=== PATIENT | female | born 1980 | race Caucasian/White ===

== ENCOUNTER → 2018-02-22 16:30 | Outpatient (CLI) | payer OTHER, SELFPAY ==
[2018-02-25 12:18] LABS: HPV Reflexed? NOT INDICATED
== END ==
PROVIDERS: Visit Provider Obstetrics & Gynecology
DX: Z12.4 Encounter for screening for malignant neoplasm of cervix (principal)
CPT/HCPCS: 88175; G0145

== ENCOUNTER → 2018-04-14 11:13 | Outpatient (CLI) | payer OTHER, SELFPAY ==
--- NOTE | 2018-04-14 11:16 | BI_ITS ---
MAMMOGRAPHY - BILATERAL SCREENING REASON FOR EXAM: Female, 37 years old. Routine annual screening examination. PERTINENT HISTORY: Grandmother with breast cancer. Aunt with breast cancer. TECHNIQUE: Digital bilateral breast hai (3D mammographic acquisition) in the CC and MLO projections. 2-D mediolateral oblique (MLO) and craniocaudad (CC) views of both breasts were obtained. CAD: Full Field Digital Mammography with Computer Added Detection was performed. COMPARISON: None. Baseline examination. FINDINGS: Breast Composition: The breasts are extremely dense, which lowers the sensitivity of mammography. There are no dominant masses or suspicious calcifications. No other significant abnormalities are identified. BI/SCREENING MAMM (CAD), BILAT IMPRESSION: Negative screening mammogram. Yearly followup mammogram recommended. (A) ASSESSMENT CATEGORY: BIRADS Category 1: Negative. A letter regarding these results will be sent to the patient by the facility within 30 days. Approximately 10% of breast cancers are not detected by mammography. A normal mammogram should not delay biopsy of a clinically suspicious abnormality. [id number] Electronically Signed: Romel Cat MD at 13:03 EDT Tel [phone], Service support ,
== END ==
PROVIDERS: Visit Provider Obstetrics & Gynecology
DX: Z12.31 Encounter for screening mammogram for malignant neoplasm of breast (principal)
CPT/HCPCS: 77063; 77067

== ENCOUNTER → 2019-05-18 | Outpatient (CLI) | payer OTHER, SELFPAY ==
--- NOTE | 2019-05-18 16:05 | BI_ITS ---
MAMMOGRAPHY - BILATERAL SCREENING REASON FOR EXAM: Female, 38 years old. Routine annual screening examination. PERTINENT HISTORY: Grandmother with breast cancer. Aunt with breast cancer. TECHNIQUE: Digital bilateral breast param (3D mammographic acquisition) in the CC and MLO projections. 2-D mediolateral oblique (MLO) and craniocaudad (CC) views of both breasts were obtained. CAD: Full Field Digital Mammography with Computer Added Detection was performed. COMPARISON: Comparison is made with prior study dated April 14, 2018. FINDINGS: Breast Composition: The breasts are extremely dense, which lowers the sensitivity of mammography. There are no dominant masses or suspicious calcifications. No other significant abnormalities are identified. There has been no significant change since the prior study. BI/SCREEN MAMM (CAD) W/PARAM BILAT IMPRESSION: Stable bilateral screening mammogram. Yearly follow-up mammogram recommended. (A) ASSESSMENT CATEGORY: BIRADS Category 1: Negative. A letter regarding these results will be sent to the patient by the facility within 30 days. Approximately 10% of breast cancers are not detected by mammography. A normal mammogram should not delay biopsy of a clinically suspicious abnormality. [id number] Electronically Signed: Romel Cat, at 9:17 EDT , Service support ,
== END | disposition home or self-care (01) ==
PROVIDERS: Referring Provider Obstetrics & Gynecology; Visit Provider Obstetrics & Gynecology
DX: Z12.31 Encounter for screening mammogram for malignant neoplasm of breast (principal)
CPT/HCPCS: 77063; 77067

== ENCOUNTER → 2020-04-03 | Outpatient (CLI) | payer OTHER, SELFPAY ==
[2018-08-18 16:16] VITALS: BMI 20.7
[2020-04-10 16:30] LABS: HPV APTIMA, High Risk Negative (Negative)
[2020-04-10 16:31] LABS: HPV Reflexed? YES, CHARGE PATIENT
== END | disposition home or self-care (01) ==
PROVIDERS: Referring Provider Obstetrics & Gynecology; Visit Provider Obstetrics & Gynecology
DX: Z12.4 Encounter for screening for malignant neoplasm of cervix (principal)
CPT/HCPCS: 87624; 88175; G0145

== ENCOUNTER → 2020-05-20 10:25 | Outpatient (CLI) | payer OTHER, SELFPAY ==
--- NOTE | 2020-05-20 10:28 | BI_ITS ---
MAMMOGRAPHY - BILATERAL SCREENING REASON FOR EXAM: Female, 39 years old. Routine annual screening examination. PERTINENT HISTORY: Grandmother with breast cancer. Aunt with breast cancer. TECHNIQUE: Digital bilateral breast param (3D mammographic acquisition) in the CC and MLO projections. 2-D mediolateral oblique (MLO) and craniocaudad (CC) views of both breasts were obtained. CAD: Full Field Digital Mammography with Computer Added Detection was performed. COMPARISON: Comparison is made with prior study dated 05/18/2019 and 04/14/2018. FINDINGS: Breast Composition: The breasts are extremely dense, which lowers the sensitivity of mammography. There are no dominant masses or suspicious calcifications. No other significant abnormalities are identified. There has been no significant change since the prior study. BI/SCREEN MAMM (CAD) W/PARAM BILAT IMPRESSION: Stable bilateral screening mammogram. Yearly follow-up mammogram recommended. (A) ASSESSMENT CATEGORY: BIRADS Category 1: Negative. A letter regarding these results will be sent to the patient by the facility within 30 days. Approximately 10% of breast cancers are not detected by mammography. A normal mammogram should not delay biopsy of a clinically suspicious abnormality. [id number] Electronically Signed: Romel Cat, at 12:10 EDT , Service support ,
== END ==
PROVIDERS: Referring Provider Obstetrics & Gynecology; Visit Provider Obstetrics & Gynecology
DX: Z12.31 Encounter for screening mammogram for malignant neoplasm of breast (principal)
CPT/HCPCS: 77063; 77067

== ENCOUNTER → 2021-05-13 | Outpatient (CLI) | payer OTHER, SELFPAY ==
[2018-08-18 16:16] VITALS: BMI 20.7
[2021-05-15 13:01] LABS: HPV Reflexed? NOT INDICATED
== END | disposition home or self-care (01) ==
LOC: LABSPEC 10:47
PROVIDERS: Visit Provider Obstetrics & Gynecology
DX: Z12.4 Encounter for screening for malignant neoplasm of cervix (principal)
CPT/HCPCS: 88175; G0145

== ENCOUNTER → 2021-05-26 11:11 | Outpatient (CLI) | payer OTHER, SELFPAY ==
--- NOTE | 2021-05-26 11:13 | BI_ITS ---
MAMMOGRAPHY - BILATERAL SCREENING REASON FOR EXAM: Female, 40 years old. Routine annual screening examination. PERTINENT HISTORY: Grandmother with breast cancer. Aunt with breast cancer. Occasional left retroareolar tenderness. TECHNIQUE: Digital bilateral breast param (3D mammographic acquisition) in the CC and MLO projections. 2-D mediolateral oblique (MLO) and craniocaudad (CC) views of both breasts were obtained. CAD: Full Field Digital Mammography with Computer Added Detection was performed. COMPARISON: Comparison is made with prior study 05/20/2020 and 05/18/2019. FINDINGS: Breast Composition: The breasts are extremely dense, which lowers the sensitivity of mammography. There are no dominant masses or suspicious calcifications. No other significant abnormalities are identified. There has been no significant change since the prior study. BI/SCRN MAMM (CAD)W/PARAM BILAT IMPRESSION: Stable bilateral screening mammogram. Yearly follow-up mammogram recommended. (A) ASSESSMENT CATEGORY: BIRADS Category 1: Negative. A letter regarding these results will be sent to the patient by the facility within 30 days. Approximately 10% of breast cancers are not detected by mammography. A normal mammogram should not delay biopsy of a clinically suspicious abnormality. [id number] Electronically Signed: Romel Cat MD at 12:46 EDT , Service support ,
== END ==
PROVIDERS: Referring Provider Obstetrics & Gynecology; Visit Provider Obstetrics & Gynecology
DX: Z12.31 Encounter for screening mammogram for malignant neoplasm of breast (principal)
CPT/HCPCS: 77063; 77067

== ENCOUNTER → 2022-06-01 | Outpatient (CLI) | payer OTHER, SELFPAY ==
--- NOTE | 2022-06-01 11:00 | BI_ITS ---
MAMMOGRAPHY - BILATERAL SCREENING REASON FOR EXAM: Female, 41 years old. Routine annual screening examination. PERTINENT HISTORY: Grandmother with breast cancer. Aunt with breast cancer. TECHNIQUE: Digital bilateral breast param (3D mammographic acquisition) in the CC and MLO projections. 2-D mediolateral oblique (MLO) and craniocaudad (CC) views of both breasts were obtained. CAD: Full Field Digital Mammography with Computer Added Detection was performed. COMPARISON: Comparison is made with prior study dated 05/26/2021 and 05/20/2020. FINDINGS: Breast Composition: The breasts are extremely dense, which lowers the sensitivity of mammography. There are no dominant masses or suspicious calcifications. No other significant abnormalities are identified. There has been no significant change since the prior study. BI/SCRN MAMM (CAD)W/PARAM BILAT IMPRESSION: Stable bilateral screening mammogram. Yearly follow-up mammogram recommended. (A) ASSESSMENT CATEGORY: BIRADS Category 1: Negative. A letter regarding these results will be sent to the patient by the facility within 30 days. Approximately 10% of breast cancers are not detected by mammography. A normal mammogram should not delay biopsy of a clinically suspicious abnormality. [id number] Electronically Signed: Romel Cat MD at 12:46 EDT ,
== END | disposition home or self-care (01) ==
LOC: OPBI 11:00
PROVIDERS: Visit Provider Obstetrics & Gynecology
DX: Z12.31 Encounter for screening mammogram for malignant neoplasm of breast (principal)
CPT/HCPCS: 77063; 77067

== ENCOUNTER → 2022-10-20 | Outpatient (CLI) | payer OTHER, SELFPAY ==
[2022-10-20 12:37] LABS: Absolute Neutrophil Count 2.5 X10^3/uL (2.0-7.7); Basophil# 0.06 X10^3/uL; Basophil% 1.3 % (0-1); Eosinophil# 0.19 X10^3/uL; Eosinophils% 4.2 % (0-5); Hematocrit 41.8 % (37-47); Hemoglobin 14.6 g/dL (12.0-15.0); Lymphocyte % 33.2 % (19-41); Mean Corp Hgb Conc 34.9 g/dL (32-36); Mean Corpuscular Hgb 32.2 pg (27.0-32.0); Mean Corpuscular Volume 92.3 fL (81-99); Mean Platelet Vol. 9.8 fl (6.2-12.0); Monocyte# 0.27 X10^3/uL; NRBC Flagged by Analyzer 0 % (0-5); Neutrophil # 2.49 X10^3/uL (2.7-7.7); Neutrophil % 55.1 % (47-70); Platelet Count 238 K/mm3 (150-450); RBC Distribution Width CV 11.6 % (11.6-14.6); RBC Distribution Width SD 39.3 fl (35.1-43.9); Red Blood Count 4.53 M/mm3 (4.2-5.4); White Blood Count 4.5 K/mm3 (4.4-11.0)
[2022-10-20 12:59] LABS: ALB/GLOB Ratio 1.2 RATIO (0.9-2.4); AST(SGOT) 11 U/L (15-37); Alanine Aminotransfer ALT/SGPT 20 U/L (13-56); Albumin, Serum 4.3 g/dL (3.2-5.0); Alkaline Phosphatase 53 U/L (45-117); Anion Gap 5 (5-15); BUN 12 mg/dL (7-18); BUN/Creat Ratio 18.8 RATIO (10-20); Calcium,Total 9.3 mg/dL (8.5-10.1); Chloride 109 mmol/L (98-107); Creatinine, Serum 0.64 mg/dL (0.55-1.02); EST Glomerular Filtration Rate 109 mL/min (>60); Est Glom Filt Rate - Afr Amer 132 mL/min (>60); Globulin 3.5 g/dL (2.2-4.2); Glucose 102 mg/dL (74-106); Potassium 3.8 mmol/L (3.5-5.1); Protein, Total 7.8 g/dL (6.4-8.2); Sodium Level 139 mmol/L (136-145)
[2022-10-20 13:11] LABS: Cholesterol 189 mg/dL (200); High Density Lipoprotein 76 mg/dL; Thyroid Stim Hormone (TSH) 1.35 uIU/mL (0.358-3.74); Triglycerides 84 mg/dL; Very Low Density Lipoprotein 17 mg/dL (5-40)
== END | disposition home or self-care (01) ==
LOC: BIMLAB 10:21
PROVIDERS: Obstetrics & Gynecology; PCP Internal Medicine; Referring Provider Internal Medicine; Visit Provider Internal Medicine
DX: I10 Essential (primary) hypertension (principal); Z13.1 Encounter for screening for diabetes mellitus; Z13.220 Encounter for screening for lipoid disorders; Z13.29 Encounter for screening for other suspected endocrine disorder
CPT/HCPCS: 36415; 80053; 80061; 84443; 85025

== ENCOUNTER → 2023-03-15 | Outpatient (CLI) | payer OTHER, SELFPAY ==
[2023-03-15 12:33] LABS: Anion Gap 1 (5-15); BUN 12 mg/dL (7-18); BUN/Creat Ratio 20.6 RATIO (10-20); Calcium,Total 9.1 mg/dL (8.5-10.1); Chloride 108 mmol/L (98-107); Creatinine, Serum 0.58 mg/dL (0.55-1.02); EST Glomerular Filtration Rate 121 mL/min (>60); Est Glom Filt Rate - Afr Amer 147 mL/min (>60); Glucose 99 mg/dL (74-106); Potassium 3.8 mmol/L (3.5-5.1); Sodium Level 136 mmol/L (136-145)
== END | disposition home or self-care (01) ==
LOC: BIMLAB 11:13
PROVIDERS: PCP Internal Medicine; Visit Provider Internal Medicine
DX: I10 Essential (primary) hypertension (principal)
CPT/HCPCS: 36415; 80048

== ENCOUNTER → 2023-09-03 | Outpatient (CLI) | payer OTHER, SELFPAY ==
--- NOTE | 2023-09-03 11:05 | BI_ITS ---
MAMMOGRAPHY - BILATERAL SCREENING REASON FOR EXAM: Female, 43 years old. Routine annual screening examination. PERTINENT HISTORY: Grandmother with breast cancer. Aunt with breast cancer. TECHNIQUE: Digital bilateral breast param (3D mammographic acquisition) in the CC and MLO projections. 2-D mediolateral oblique (MLO) and craniocaudad (CC) views of both breasts were obtained. CAD: Full Field Digital Mammography with Computer Added Detection was performed. COMPARISON: Comparison is made with prior study dated June 01, 2022 and May 26, 2021. FINDINGS: Breast Composition: The breasts are extremely dense, which lowers the sensitivity of mammography. There are no dominant masses or suspicious calcifications. No other significant abnormalities are identified. There has been no significant change since the prior study. BI/SCRN MAMM (CAD)W/PARAM BILAT IMPRESSION: Stable bilateral screening mammogram. Yearly follow-up mammogram recommended. (A) ASSESSMENT CATEGORY: BIRADS Category 1: Negative. A letter regarding these results will be sent to the patient by the facility within 30 days. Approximately 10% of breast cancers are not detected by mammography. A normal mammogram should not delay biopsy of a clinically suspicious abnormality. [id number] Electronically Signed: Romel Cat MD at 9:42 EST ,
== END | disposition home or self-care (01) ==
PROVIDERS: PCP Internal Medicine; Referring Provider Obstetrics & Gynecology; Visit Provider Obstetrics & Gynecology
DX: Z12.31 Encounter for screening mammogram for malignant neoplasm of breast (principal); Z80.3 Family history of malignant neoplasm of breast
CPT/HCPCS: 77063; 77067

== ENCOUNTER → 2024-02-15 | Outpatient (CLI) | payer OTHER, SELFPAY ==
[2024-02-23 03:07] LABS: HPV APTIMA, High Risk Negative (Negative)
== END | disposition home or self-care (01) ==
LOC: LABSPEC 14:22
PROVIDERS: PCP Internal Medicine; Referring Provider Obstetrics & Gynecology; Visit Provider Obstetrics & Gynecology
DX: Z12.4 Encounter for screening for malignant neoplasm of cervix (principal)
CPT/HCPCS: 88175; G0145

== ENCOUNTER → 2024-03-14 | Outpatient (CLI) | payer OTHER, SELFPAY ==
--- NOTE | 2024-03-14 13:21 | US_ITS ---
INDICATION: abnormal uterine bleeding EXAMINATION: Ultrasound US Pelvis Non OB Complete With Transvaginal Imaging TECHNIQUE: Transabdominal and transvaginal pelvic ultrasound was performed. Grayscale, spectral waveform, and color flow Doppler evaluation of the adnexa. COMPARISON: None. FINDINGS: UTERUS: Anteverted. The uterus measures 8.6 x 6.1 x 5.0 cm. There is no uterine mass. The endometrial stripe measures 7.8 in AP diameter which is within normal limits. Nabothian cysts are present within the cervix. RIGHT OVARY: 3.6 x 2.3 x 1.5 cm. Non-enlarged, normal echogenicity. There is normal arterial inflow and venous outflow present in the right ovary. LEFT OVARY: 2.2 x 2.2 x 1.4 cm. Non-enlarged, normal echogenicity. There is normal arterial inflow and venous outflow present in the left ovary. FREE FLUID: None. US/Pelvic w/ Transvaginal IMPRESSION: 1. Normal sonographic appearance of uterus and endometrium, endometrium measures 7.8 mm. No endometrial masses or abnormal fluid collections or blood flow. 2. Nabothian cysts are present in the cervix. 3. Normal sonographic appearance both ovaries without solid or cystic masses or abnormal blood flow. 4. No evidence of torsion. 5. No free fluid. Electronically Signed: Esvin Dewey MD at 23:01 EDT ,
== END | disposition home or self-care (01) ==
PROVIDERS: PCP Internal Medicine; Referring Provider Obstetrics & Gynecology; Visit Provider Obstetrics & Gynecology
DX: N93.9 Abnormal uterine and vaginal bleeding, unspecified (principal); N94.6 Dysmenorrhea, unspecified
CPT/HCPCS: 76830; 76856

== ENCOUNTER → 2024-04-06 | Outpatient (CLI) | payer OTHER, SELFPAY ==
--- NOTE | 2024-04-06 08:45 | EMB_PTH ---
PATIENT: KATY GAMBLE LOC: [facility] U#:[id number] AGE/SX: 43/F ROOM: RE04/06/[address]: Dr. Viv Rod DO : 1980 BED: DIS: 04/06/2024 SPEC #: [id number] RECD: 04/06/24 11:58 STATUS: FELIPE LENZ #: [id number] DAKOTAH: 04/06/24 08:[address]: Viv Rod DEPT: SURGICAL PATHOLOGY RECD BY: Gris May ENTERED: 04/06/24 13:33 SP TYPE: ENDOM BX/C CYRUS DR: Dr. France Howard MD Tissues: Endometrium, NOS Procedures: Surgery Specimen Level IV HEADER OPERATION: Endometrial biopsy PRE-OP DIAGNOSIS: Abnormal uterine bleeding TISSUE SUBMITTED: Endometrial lining MICROSCOPIC DIAGNOSIS Endometrial biopsy: Proliferative endometrium. Fragments of benign ectocervical and endocervical mucosa. SJ/mr 04/07/2024 MICROSCOPIC DESCRIPTION Slides are reviewed. GROSS DESCRIPTION Received is one container labeled with the patient's name and not further designated. The specimen consists of multiple irregular fragments of pink-red soft tissue that in aggregate measure 2.0 x 1.0 x 0.2 cm. The specimen is totally submitted in one cassette. / 04/06/2024 TC:4 CPT:68580
== END | disposition home or self-care (01) ==
PROVIDERS: PCP Internal Medicine; Visit Provider Obstetrics & Gynecology
DX: N93.9 Abnormal uterine and vaginal bleeding, unspecified (principal); N89.8 Other specified noninflammatory disorders of vagina
CPT/HCPCS: 87070; 87205; 88305

== ENCOUNTER → 2024-04-11 | Outpatient (CLI) | payer OTHER, SELFPAY ==
[2024-04-11 11:57] LABS: Absolute Neutrophil Count 3.4 X10^3/uL (2.0-7.7); Basophil# 0.06 X10^3/uL; Basophil% 1.1 % (0-1); Eosinophil# 0.12 X10^3/uL; Eosinophils% 2.2 % (0-5); Hematocrit 42.3 % (37-47); Hemoglobin 14.5 g/dL (12.0-15.0); Lymphocyte % 25.8 % (19-41); Mean Corp Hgb Conc 34.3 g/dL (32-36); Mean Corpuscular Hgb 32.3 pg (27.0-32.0); Mean Corpuscular Volume 94.2 fL (81-99); Mean Platelet Vol. 9.9 fl (6.2-12.0); Monocyte# 0.39 X10^3/uL; Monocyte% 7.2 % (0-10); NRBC Flagged by Analyzer 0 % (0-5); Neutrophil # 3.44 X10^3/uL (2.7-7.7); Neutrophil % 63.3 % (47-70); Platelet Count 248 K/mm3 (150-450); RBC Distribution Width CV 11.8 % (11.6-14.6); RBC Distribution Width SD 40.6 fl (35.1-43.9); Red Blood Count 4.49 M/mm3 (4.2-5.4); White Blood Count 5.4 K/mm3 (4.4-11.0)
[2024-04-11 12:47] LABS: ALB/GLOB Ratio 1.3 RATIO (0.9-2.4); AST(SGOT) 15 U/L (15-37); Alanine Aminotransfer ALT/SGPT 15 U/L (13-56); Albumin, Serum 4.3 g/dL (3.2-5.0); Alkaline Phosphatase 70 U/L (45-117); Anion Gap 7 (5-15); BUN 13 mg/dL (7-18); BUN/Creat Ratio 20.4 RATIO (10-20); Calcium,Total 9.7 mg/dL (8.5-10.1); Chloride 105 mmol/L (98-107); Creatinine, Serum 0.64 mg/dL (0.55-1.02); EST Glomerular Filtration Rate 109 mL/min (>60); Est Glom Filt Rate - Afr Amer 132 mL/min (>60); Globulin 3.3 g/dL (2.2-4.2); Glucose 101 mg/dL (74-106); Potassium 3.6 mmol/L (3.5-5.1); Protein, Total 7.6 g/dL (6.4-8.2); Sodium Level 137 mmol/L (136-145)
== END | disposition home or self-care (01) ==
LOC: BIMLAB 10:25
PROVIDERS: PCP Internal Medicine; Referring Provider Internal Medicine; Visit Provider Internal Medicine
DX: I10 Essential (primary) hypertension (principal)
CPT/HCPCS: 36415; 80053; 85025

== ENCOUNTER 2024-05-02 08:41 | Day surgery (SDC) | payer OTHER, SELFPAY ==
[2024-05-02] VITALS (7 sets, daily range): BP systolic 91–137; BP diastolic 62–92; PULSE 66–83; RESP 16–18; TEMP 36.2–36.6; O2SAT 97–100; BMI 20.9
[2024-05-02] MEDS: Lactated Ringers 1,000 ML 15 ML IV (09:07)
--- NOTE | 2024-05-02 09:40 | PRE.ANES_ITS ---
ASA Classification* ASA Classification ASA Classification: 2 Assessment & Plan Anesthesia* Anesthesia Assessment Anesthesia Assessment: Discussed sedation and/or anesthesia options, risks, benefits, and alternatives with patient/parents/legal guardian/POA. Questions invited. The patient/parents/legal guardian/POA seems to understand and agrees to proceed with anesthesia plan. Reviewed the physical assessment, medical history, allergy history and patient home medications list prior to surgery/procedure/anesthetic and documented any changes. Performed airway and anesthesia risk assessments. Anesthesia Type Anesthesia Type: MAC Anesthesia Focused Assessment* Temperature: 97.4 F Pulse Rate: 83 Blood Pressure: 137/92 Respiratory Rate: 16 Pulse Ox: 100 Airway Assessment Mouth opens: >3 cm Mallampati Score: II Focused Labs Anesthesia Preop lab: CBC WBC 5.4 K/mm3 (4.4-11.0) 04/11/24 10:25 RBC 4.49 M/mm3 (4.2-5.4) 04/11/24 10:25 Hgb 14.5 g/dL (12.0-15.0) 04/11/24 10:25 Hct 42.3 % (37-47) 04/11/24 10:25 Plt Count 248 K/mm3 (150-450) 04/11/24 10:25 CHEMISTRY Potassium 3.6 mmol/L (3.5-5.1) 04/11/24 10:25 Sodium 137 mmol/L (136-145) 04/11/24 10:25 BUN 13 mg/dL (7-18) 04/11/24 10:25 Creatinine 0.64 mg/dL (0.55-1.02) 04/11/24 10:25 Glucose 101 mg/dL (74-106) 04/11/24 10:25 POC Glucose 89 mg/dL (70-110) 11/15/14 07:18 TSH 1.35 uIU/mL (0.358-3.74) 10/20/22 10:22 COAG Urine Test Pending 05/02/24 08:52 Pre-Assessment Diagnosis/Proposed Procedure Planned Operative Procedure(s): HYSTEROSCOPY D&C ABLATION Anesthesia History Anesthesia History - digital account coordinator: Anesthesia History - digital account coordinator Hx Hospitalization No 04/24/24 09:19 Any Problems With Anesthesia No 04/24/24 09:19 Cholinesterase deficiency No 04/24/24 09:19 You/Your Family Experience No 04/24/24 09:19 fever (hyperthermia) with Relationship Recent Exposure to Contagious No 05/02/24 09:01 Disease Does patient have nerve No 04/24/24 09:19 stimulator Patient instructed to have device shut off --Does patient have Pacemaker No 05/02/24 09:02 or ICD? When Was Last Pacemaker Check QUESTION #4 FULL TEXT: You/Your Family Experience fever (hyperthermia) with Anesthesia Last Oral Intake Last Oral intake: Last Oral Intake NPO since 20:00 05/02/24 09:02 Meds taken in AM with sips of water? Meds patient instructed to take am of surgery PONV PONV - digital account coordinator: PONV - digital account coordinator Female Yes 04/24/24 09:19 HX of Motion Sickness No 04/24/24 09:19 HX of N/V After Surgery No 04/24/24 09:19 Non-Smoker No 04/24/24 09:19 Duration of Surgery greater No 04/24/24 09:19 than 60 minutes Number of Risk Factors 1 04/24/24 09:19 PONV Score Low Risk 04/24/24 09:19 Height & Weight Height & Weight: Anesthesia: Height & Weight Height 5 ft 05/02/24 09:02 Weight: 48.807 kg 05/02/24 09:02 Body Mass Index (BMI) 20.9 05/02/24 09:02 Respiratory Assessment Respiratory Assessment - digital account coordinator: Respiratory Tract Infection Hx - digital account coordinator Hx Respiratory Tract Infection No 04/24/24 09:19 STOP Sleep Apnea STOP Sleep Apnea - digital account coordinator: STOP Sleep Apnea - digital account coordinator Hx Hypertension Yes: CONTROLLED WITH MED 04/24/24 09:19 Hx Sleep Apnea No 04/24/24 09:19 CPAP BIPAP Do you snore loudly (louder Yes 04/24/24 09:19 than talking or can be heard Do you often feel tired/ No 04/24/24 09:19 fatigued/ sleepy during daytime? Has anyone observed you stop No 04/24/24 09:19 breathing during sleep? STOP Results Positive 04/24/24 09:19 QUESTION #5 FULL TEXT : Do you snore loudly (louder than talking or can be heard through closed doors)? 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 Specify any problems Hx of Preganancy in last 3 No 04/24/24 09:19 Months Nurse Filling Out Transfusion DSCHRIBER 04/24/24 09:19 & Questions: Date: 04/24/24 04/24/24 09:19 Time: 09:21 04/24/24 09:19 Patient unable to answer at this time (ie. confused, unrespo /Reproduction History /Reproductive History - digital account coordinator: /Reproductive Hx- digital account coordinator Hx Now No 04/24/24 09:19 Gestational Age (in weeks): EDC: Hx Hx Para Hx Section SAB No 04/24/24 09:19 Active Medications Active Medications: Current Medications Generic Name Dose Route Start Last Admin Trade Name Freq PRN Reason Stop Dose Admin Lactated Ringer's 1,000 mls @ 15 mls/hr 05/02/24 09:00 05/02/24 09:07 IV 15 mls/hr .Q48H FERNANDO Administration Lactated Ringer's 1,000 mls @ 15 mls/hr 05/02/24 09:15 IV .Q48H FERNANDO PFSH Medical History Anxiety Alcohol use Smoker Hypertension Home Medications ?Medication ?Instructions ?Recorded ?Last Taken ?Type hydroxyzine HCl 10 mg tablet 10 mg PO TID PRN anxiety #10 tabs 03/15/23 Unknown Rx amlodipine 5 mg tablet 5 mg PO DAILY #30 tabs 05/01/24 05/01/24 Rx Allergy/AdvReac Type Severity Reaction Status Date / Time No Known Allergies Allergy Verified 05/02/24 08:59 Family History Mother Hypertension Father Hypertension CVA (cerebral vascular accident) Grandfather Cancer Grandmother Cancer of fallopian tube Grandmother Breast cancer Aunt Breast cancer Surgical History History of biopsy H/O wisdom tooth extraction Social History household members: spouse current occupational status: employed 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
--- NOTE | 2024-05-02 11:59 | PCM.HP.BLA ---
History and Physical Date of Admission: 05/02/24 Intake Vital Signs 02/15/2412:57 04/06/2408:38 04/06/2408:40 Height 5 ft 5 ft 5 ft Weight: 111 lb 8 oz BMI 21.7 BP 154/89 H Intake Visit Reasons: EMB Applied Exercise Physiologist Required: No Is patient in pain?: No Allergies No Known Allergies Allergy (Verified 04/06/24 08:37) Medications ?Medication ?Instructions ?Recorded ?Confirmed ?Type hydroxyzine HCl 10 mg tablet 10 mg PO TID PRN anxiety #10 tabs 03/15/23 04/06/24 Rx amlodipine 5 mg tablet 5 mg PO DAILY #30 tabs 10/25/23 04/06/24 Rx Post menopausal: No Patient : No : No PFSH PFSH Medical History Hypertension Surgical History H/O wisdom tooth extraction Family History Mother HypertensionFather Hypertension CVA (cerebral vascular accident)Grandfather CancerGrandmother Cancer of fallopian tubeGrandmother Breast cancerAunt Breast cancer Social History household members: spouse current occupational status: employed 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 Date Name GA/Weeks Outcome Route Bth Weight Gen Labor Lgth Anesthesia Del Locatn Provider FOB Unknown Terrell Unknown Jc (girl) HPI EMB Details: KATY GAMBLE is a 43 year old who presents for EMB for tentatively scheduled ablation ROS Const ROS Unobtainable: All systems reviewed & are unremarkable except as noted in H Resp Resp: Reports system reviewed and no additional complaints, except as documented; Denies cough GI GI: Reports as per HPI Psych Psych: Reports system reviewed and no additional complaints, except as documented Exam Const General: cooperative, healthy appearing, comfortable and no acute distress Resp Effort & Inspection: normal respiratory effort General: bimanual renal exam normal bilaterally External Female Exam: normal appearance of the urethra Urethra: normal appearance of the urethra Speculum Exam - Vagina: normal appearance of the vagina Speculum Exam - Cervix: normal appearance of the cervix Bimanual Exam- Adnexa, other: normal adnexae and normal Pelvic Support: normal Skin General: no rashes or lesions noted Psych Appearance: grossly normal Speech and Movement: speech and movement normal Office Procedures Endometrial Biopsy Endometrial Biopsy Test: Yes declined Consent Signed: Yes Time out checklist: patient tenaculum used: Yes dilator used: No Details: Cervix prepped with betadine and pipelle inserted into uterus without complication. Specimen obtained and sent to lab for analysis. All instruments removed from vagina without complications. Excellent hemostasis noted. Coding Level of Care Code Off vis,est,level 3 Diagnoses Abnormal uterine bleeding N93.9 Hypertension I10 CPT Codes Endometrial Biopsy (63108) Assessment and Plan Assessment and Plan (1) Abnormal uterine bleeding: Status: Acute Plan: emb performed. will call with results and proceed with ablation (2) Hypertension: Status: Chronic Orders: Orders Endometrial Biopsy Today N93.9 - Abnormal uterine and vaginal bleeding, unspecified After discussing the patient's diagnosis and treatment plan options, patient wishes to proceed with surgical management. I have discussed with the patient the risks, benefits, and alternatives of the procedure which include but are not limited to risks of anesthesia, bleeding, infection, possible damage to bowel, bladder, or surrounding vasculature which could lead to additional surgery to evaluate any complications. Patient agrees to procedure and wishes to proceed. ACOG/uptodate references given for additional information regarding procedure.
[2024-05-02] MEDS: Lidocaine 1% (20 ml mdv) 20 ML Vial (12:16)
--- NOTE | 2024-05-02 12:20 | OP.PCM_ITS ---
Problems Associated Problem List Diagnoses (1) Abnormal uterine bleeding: Report of Operation Date of Procedure: 05/02/24 Pre-Operative Diagnosis: menorrhagia Post-Operative Diagnosis: menorrhagia Surgery/Procedure Performed:: hysteroscopy, carol ablation Description of Surgical Findings:: normal appearing endometrium and ostia. Surgeon: Viv Rod professor of archaeology: None Type of Anesthesia: MAC and Topical Anesth Description of Procedure: Patient was prepped and draped in a normal sterile fashion under MAC anesthesia. A weighted speculum was placed in the vagina and the anterior lip of the cervix was grasped with a single-tooth tenaculum. A paracervical block was placed with 1% lidocaine. Cervix was progressively dilated to allow passage of a 5 mm hysteroscope. The lining was fully visualized and noted to have a uniform appearing endometrium . Uterine sounded to 8 cm. The Carol device was opened and the cavity length was found to be 4.5 cm. Device was inserted into the uterus and balloon inflated and device deployed. Integrity of the cavity was confirmed and a 2 minute treatment cycle was completed without complication. All instruments were removed from the vagina and excellent hemostasis was noted. Patient was awoken and taken to recovery in stable condition. Complications none Admit VTE Documentation VTE Present on Admission: No VTE Mechan Device Prophylaxis: SCD's VTE Pharm Prophylaxis ordered?: No Multi Select Codes Urinary/Genital Urinary/Genital CPT Codes: 85253 Carol/Novasure
--- NOTE | 2024-05-02 12:22 | PCM.DC ---
Discharge Instructions Diet Discharge Diet: No restrictions Activity Discharge Activity: Return to Normal Activity, May Shower and May Take a Tub Bath (after 1 week) May resume sexual activity in: 1-2 weeks Weight Bearing Status: Weight bearing as tolerated Lifting Restrictions: none Dressing / Incision Call your doctor if you observe: Fever of 101 or Higher, Using more than 1 pad per hour, Shortness of breath and Uncontrolled pain Follow Up Care Please Follow Up With: Viv Rod DO When: Call [phone] to schedule appointment. Test Results: Test results from this visit will be discussed in further detail at your follow-up appointment, if applicable. Discharge Plan Admission Primary Reason for Your Visit: hysteroscopy, ablation Attending Provider: Viv Rod Primary Care Provider: France Howard Instructions Print Language: Georgian Discharge Orders/Prescriptions Prescriptions: New ibuprofen 800 mg tablet 800 mg PO Q8H PRN (Reason: pain) Qty: 30 0RF Continued hydroxyzine HCl 10 mg tablet 10 mg PO TID PRN (Reason: anxiety) Qty: 10 0RF amlodipine 5 mg tablet 5 mg PO DAILY Qty: 30 5RF Referrals / Follow Up: France Howard MD [Primary Care Provider] - Disposition Disposition (needs filled in before D/C Order can be placed): Home, Self Care
--- NOTE | 2024-05-02 12:38 | PCM.POST.ANE ---
Anesthesia: Postop Eval I Current Vital Signs Temperature: 97.2 F Pulse Rate: 68 Blood Pressure: 91/62 Respiratory Rate: 16 Pulse Ox: 97 Oxygen Delivery Method: Room Air Assessment Airway patent: Yes Spontaneous unlabored respirations: Yes Mental status: Awake and Calm nausea: No Vomiting: No Anesthesia Complication: No Fluid Hydration Crystalloid volume administer (ml): 800 Total IV fluid infused: 800 Progress Note Anesthesia document: Postop Eval 1 completed: Yes
[2024-05-02 13:10] LABS: Internal QC Validated? YES +Cl - CLEAR BKGD; Pregnancy, Urine Negative Negative
[2024-05-02] MEDS: HYDROcodone Bitartrate/Apap 5/325 Tablet PO (13:24)
--- NOTE | 2024-05-02 14:08 | PCM.POSTANE2 ---
Anesthesia Postop Eval I Sum Postop Eval Completion status Anesthesia document: Postop Eval 1 completed: Yes Anesthesia Postop Eval I Summary Anesthesia Postop Eval I Summary: Anesthesia Postop Eval I: Assessment Summary Airway patent Yes 05/02/24 12:39 [email or web address] Spontaneous unlabored Yes 05/02/24 12:39 [email or web address] respirations Mental status Awake,Calm 05/02/24 12:39 [email or web address] nausea No 05/02/24 12:39 [email or web address] Vomiting No 05/02/24 12:39 [email or web address] Anesthesia Postop Eval I: Fluid Summary Crystalloid volume administer 800 05/02/24 12:39 [email or web address] (ml) Colloids volume administered ( ml) Blood Product volume administered (ml) Total IV fluid infused 800 05/02/24 12:39 [email or web address] Anesthesia Postop Eval I: Summary Notes Anesthesia Complication No 05/02/24 12:39 [email or web address] Anesthesia Complication Comment: Post-operative progress note Anesthesia: Postop Eval II Evaluation Mental status: Awake and Calm Pain Level: 0 nausea: No Vomiting: No Complications Anesthesia Complication: No
== END 2024-05-02 14:00 | disposition home or self-care (01) ==
LOC: SDC 08:44 → AC 08:44
PROVIDERS: PCP Internal Medicine; Referring Provider Obstetrics & Gynecology; Visit Provider Obstetrics & Gynecology
PROC: 0U5B8ZZ Destruction of Endometrium, Via Natural or Artificial Opening Endoscopic (ICD-10-PCS; CPT 58558; principal; 2024-05-02 10:00)
DX: N93.9 Abnormal uterine and vaginal bleeding, unspecified (principal); I10 Essential (primary) hypertension; N92.0 Excessive and frequent menstruation with regular cycle; F17.200 Nicotine dependence, unspecified, uncomplicated; F41.9 Anxiety disorder, unspecified; Z79.899 Other long term (current) drug therapy
CPT/HCPCS: 58563; 00952; 81025; 86850; 86900; 86901; J7120; J2405

== ENCOUNTER → 2024-09-11 | Outpatient (CLI) | payer OTHER, SELFPAY | END | disposition home or self-care (01) | LOC: OPBI 11:52 | PROVIDERS: PCP Internal Medicine; Referring Provider Obstetrics & Gynecology; Visit Provider Obstetrics & Gynecology | DX: Z12.31 Encounter for screening mammogram for malignant neoplasm of breast (principal) | CPT/HCPCS: 77063; 77067 ==

== ENCOUNTER → 2025-05-09 | Outpatient (CLI) | payer OTHER, SELFPAY ==
[2025-05-09 16:09] LABS: Hematocrit 43.0 % (37-47); Hemoglobin 14.3 g/dL (12.0-15.0); Immature Granulocytes Count 0.010 X10^3/uL (0.0-0.0); Mean Corp Hgb Conc 33.3 g/dL (32-36); Mean Corpuscular Volume 97.9 fL (81-99); Mean Platelet Vol. 10.4 fl (6.2-12.0); NRBC Flagged by Analyzer 0 % (0-5); Platelet Count 191 K/mm3 (150-450); RBC Distribution Width CV 11.9 % (11.6-14.6); RBC Distribution Width SD 42.7 fl (35.1-43.9); Red Blood Count 4.39 M/mm3 (4.2-5.4); White Blood Count 4.2 K/mm3 (4.4-11.0)
[2025-05-09 16:28] LABS: AST(SGOT) 22 U/L (<=31); Alanine Aminotransfer ALT/SGPT 21 U/L (<=34); Albumin, Serum 4.5 g/dL (3.5-5.0); Alkaline Phosphatase 81 U/L (35-104); Anion Gap 11 (5-15); BUN 8 mg/dL (4-19); BUN/Creat Ratio 12.0 RATIO (10-20); Calcium,Total 9.9 mg/dL (7.6-11.0); Carbon Dioxide 23.6 mmol/L (21.0-32.0); Chloride 104 mmol/L (98-108); Cholesterol 176 mg/dL (<=200); Globulin 2.8 g/dL (2.2-4.2); Glucose 95 mg/dL (70-99); Low Density Lipoprotein Calc. 74 mg/dL; Potassium 4.7 mmol/L (3.3-5.1); Triglycerides 68 mg/dL; Very Low Density Lipoprotein 14 mg/dL (5-40); cholesterol:hdl ratio screen 2.00
--- OUTSIDE RECORDS SUMMARY | 2025-05-09 20:25 | XMS RPT_ITS | CCD ---
Author Organization [facility] Care Team Providers Care Wind Commissioning Technician Name Role Phone Care Physician, No Primary Primary Care Provider Unavailable Care Physician, No Primary Referring Provider Un available Dr. Viv Rod Attending Provider [phone] Dr. France Howard Attending Provider [place], [place] Primary Care Unavailable Viv Rod Attending Unavailabl e Viv Rod Referring Unavailabl e Viv Rod Attending Unavailabl e Vande VelViv ghosh Referring Unavailabl e [place], [place] Primary Care Unavailable Viv Rod Attending Unavailabl e [place], [place] Primary Care Unavailable [place], [place] Attending Unavailable Anita, [place] Referring Unavailable [place], [place] Primary Care Unavailable Viv Rod Attending Unavailabl e Vande VelViv ghosh Referring Unavailabl e Anita, [place] Primary Care Unavailable [place]ita, [place] Primary Care Unavailable Viv Rod Attending Unavailabl e [place], [place] Referring Unavailable Idaniae Viv Williamson Attending Unavailabl e [place], [place] Referring Unavailable [place], [place] Primary Care Unavailable [place]ita, [place] Attending Unavailable [place], [place] Referring Unavailable [place], [place] Primary Care Unavailable Viv Rod Attending Unavailabl e [place], [place] Referring Unavailable Anita, [place] Primary Care Unavailable Viv Rod Attending Unavailabl e Viv Rod Referring Unavailabl e Viv Rod Consulting Unavailabl e Anita, [place] Primary Care Unavailable Anita, [place] Attending Unavailable [place], [place] Referring Unavailable [place], [place] Primary Care Unavailable [place] Howard Primary Care Unavailable France Howard Attending Unavailable France Howard Referring Unavailable Viv Rod Referring UnavailViv Noland Attending Unavailuzair e [place] Howard Primary Care Unavailable Anita LEVINE, Dr. Hough Primary Care Provider [phone] Anita LEVINE, Dr. Hough Referring Provider Dejon Gallo Attending Provider Medications Current Medications Medication Drug Class(es) Dates Sig (Normalized) Sig (Original) amLODIPine 5 mg oral tablet (8 sources) Dihydropyridine Calcium Channel Shyanne Start: 03-15-2023 End: 05-09-2025 take 1 tablet by mouth once daily Amlodipine 5 mg tablet Active 5 mg PO DAILY 90 1 May 09, 2025 11:35am Completed/Discontinued Medications Medication Drug Class(es) Dates Sig (Normalized) Sig (Original) ascorbic acid 500 mg oral capsule (3 sources) Vitamin C Start: 09-23-2022 End: 03-15-2023 Ascorbic Acid (Vitamin C) 500 mg capsule Discontinued mg PO September 23, 2022 1:00am March 15, 2023 10:28am Start: 09-23-2022 End: 03-15-2023 Ascorbic Acid (Vitamin C) Di scontinued MG PO September 23, 2022 12:00am March 15, 2023 9:28am Norgestimate-Ethinyl Estradiol (4 sources) Progestin, Estrogen Start: 08-18-2018 End: 09-23-2022 Norgestimate-Ethinyl Estradiol (Sprintec (28)) 0.25-35 mg-mcg tablet Discontinued 1 {tbl} PO DAILY August 18, 2018 1:00am September 23, 2022 5:14pm Start: 08-18-2018 End: 09-23-2022 take 1 tablet by mouth once daily Norgestimate-Ethinyl Estradiol (Sprintec (28)) 0.25-35 mg-mcg tablet Discontinued 1 TABLET PO DAILY August 18, 2018 12:00am September 23, 2022 4:14pm Start: 08-18-2018 take 1 tablet by lesley th once daily Norgestimate-Ethinyl Estradiol (Sprintec (28)) 0.25-35 mg-mcg tablet Active 1 TABLET PO DAILY August 18, 2018 1:00am hydrOXYzine hydrochloride 10 mg oral tablet (6 sources) Antihistamine Start: 11-10-2022 End: 03-15-2023 take 1 tablet by mouth three times daily as needed for anxiety Hydroxyzine Hcl 10 mg tablet Discontinued 10 mg PO THREE TIMES A DAY as needed for anxiety 10 0 February 09, 2023 12:05pm March 15, 2023 11:01am ibuprofen 800 mg oral tablet (1 source) Nonsteroidal Anti-inflammatory Drug Start: 05-02-2024 End: 05-16-2024 take 1 tablet by mouth every eight hours as needed for pain Ibuprofen 800 mg tablet Discontinued 800 mg PO Q8H as needed for pain 30 0 May 02, 2024 12:00am May 16, 2024 3:39pm lisinopril 5 mg oral tablet (5 sources) Angiotensin Converting Enzyme Inhibitor Start: 10-20-2022 End: 02-09-2023 take 1 tablet by mouth once daily Lisinopril 5 mg tablet Discontinued 5 mg PO DAILY 30 2 November 10, 2022 10:51am February 09, 2023 12:05pm losartan potassium 25 mg oral tablet (8 sources) Angiotensin 2 Receptor Shyanne Start: 03-19-2023 End: 04-26-2023 take 1 tablet by mouth once daily Losartan 25 mg tablet Discontinued 25 mg PO DAILY 30 4 April 12, 2023 10:11am April 26, 2023 9:32am Start: 02-09-2023 End: 03-15-2023 take 1 tablet by mouth once daily Losartan 25 mg tablet Discontinued 25 mg PO DAILY 30 3 March 09, 2023 8:05am March 15, 2023 11:00am metroNIDAZOLE 500 mg oral tablet (1 source) Nitroimidazole Antimicrobial Start: 04-09-2024 End: 04-11-2024 take 1 tablet by mouth twice daily Metronidazole 500 mg tablet Discontinued 500 mg PO TWICE A DAY 14 7 0 April 09, 2024 12:00am April 15, 2024 12:00am April 11, 2024 10:03am Multivitamin preparation (2 sources) Start: 09-23-2022 End: 11-10-2022 take 1 tablet by mouth once daily Multivitamin Discontinued 1 TABLET PO DAILY September 23, 2022 12:00am November 10, 2022 9:22am Start: 09-23-2022 take 1 tablet by lesley th once daily Multivitamin Active 1 TABLET PO DAILY September 23, 2022 12:00am Multivitamin tablet (1 source) Start: 09-23-2022 End: 11-10-2022 Multivitamin tablet Discontinued 1 {tbl} PO DAILY September 23, 2022 1:00am November 10, 2022 10:22am Vit,Plxs13-Ctjd-Mylbq (3 sources) Start: 01-16-2015 End: 08-18-2018 take 1 tablet by mouth once daily Vit,Bclu80-Ttjb-Sxbcd Discontinued 1 TABLET PO DAILY January 15, 2015 11:00pm August 18, 2018 4:17pm Start: 01-16-2015 End: 08-18-2018 take 1 tablet by mouth once daily Vit,Rdpw43-Rrdd-Rhasg Discontinued 1 TABLET PO DAILY January 16, 2015 12:00am August 18, 2018 5:17pm Vit,Pjex57-Nbxo-Rlxny 1 TABLET tablet (1 source) Start: 01-16-2015 End: 08-18-2018 take 1 tablet by mouth once daily Vit,Xtid53-Lvwu-Nhisa 1 TABLET tablet Discontinued 1 {tbl} PO DAILY January 16, 2015 12:00am August 18, 2018 5:17pm tobramycin 3 mg/ml ophthalmic solution (4 sources) Aminoglycoside Antibacterial Start: 08-18-2018 End: 09-23-2022 take 0.3 drop(s) into the eye(s) every two hours Tobramycin 0.3 % drops Discontinued 1 NMA OPHTHALMIC Q2H 5 0 August 18, 2018 1:00am September 23, 2022 5:14pm to left eye while awake for 5 days Problems Active Problems Problem Classification Problem Date Documented Date Episodic/Chronic Administrative/social admission (1 source) Persons encountering health services in other specified circumstances; Translations: [Other reasons for seeking consultation] Episodic Anxiety disorders (1 source) Anxiety disorder, unspecified; Translations: [Anxiety state, unspecified] Chronic Cancer of cervix (1 source) Atypical squamous cells of undetermined significance on cervical Papanicolaou smear; Translations: [Atypical squamous cells of undetermined significance on cytologic smear of cervix (ASC-US)] 02-23-2024 Episodic Comment on above: repeat pap 2024 Essential hypertension (4 sources) Essential (primary) hypertension; Translations: [Unspecified essential hypertension] Onset: 04-27-2024 Chronic Comment on above: CONTROLLED WITH MED Inflammation; infection of eye (except that caused by tuberculosis or sexually transmitteddisease) (4 sources) Conjunctivitis; Translations: [Unspecified conjunctivitis] 10-20-2022 Episodic Menstrual disorders (2 sources) Dysmenorrhea, unspecified; Translations: [Dysmenorrhea] Onset: 02-15-2024 02-15-2024 Chronic Other female genital disorders (1 source) Abnormal uterine and vaginal bleeding, unspecified; Translations: [Abnormal uterine and vaginal bleeding, unspecified] Onset: 05-16-2024 Chronic Other female genital disorders (1 source) Abnormal uterine bleeding; Translations: [Abnormal uterine and vaginal bleeding, unspecified] 02-15-2024 Chronic Other female genital disorders (1 source) Vaginal discharge; Translations: [Other specified noninflammatory disorders of vagina] 04-06-2024 Episodic Other screening for suspected conditions (not mental disorders or infectious disease) (2 sources) Encounter for screening mammogram for malignant neoplasm of breast; Translations: [Encounter for screening for malignant neoplasm of cervix] Onset: 02-22-2024 Episodic Residual codes; unclassified (1 source) Immunization not carried out because of patient refusal; Translations: [Vaccination not carried out because of patient refusal] Episodic Residual codes; unclassified (1 source) Past history of procedure; Translations: [Other specified postprocedural states] 05-16-2024 Episodic Past or Other Problems Problem Classification Problem Date Documented Da te Episodic/Chronic Unclassified (1 source) HISTORY OF CHILD Results Test Name Value Interpretation Reference Range Facility SCRN MAMM (CAD)W/PARAM Boyd n 09-11-2024 SCRN MAMM (CAD)W/PARAM LOCO [facility] Imaging Services [address] [place] [address] SCRN MAMM (CAD)W/PARAM LOCO MR#: [id number] Acct: [id number] Name: TYEKATY APPLE Rep #: [id number] : 1980 F 44 From: Romel fuentes MD PCP: Dr. France Howard MD Status: [facility] Study: SCRN MAMM (CAD)W/PARAM BILAT Date of Exam: 12/04 Exam# [id number] Ordering Dr: Barbara WilliamsonViv DO [id number] MAMMOGRAPHY - BILATERAL SCREENING REASON FOR EXAM: Female, 44 years old. Routine annual screening examination. PERTINENT HISTORY: Grandmother with breast cancer. Aunt with breast cancer. TECHNIQUE: Digital bilateral breast param (3D mammographic acquisition) in the CC and MLO projections. 2-D mediolateral oblique (MLO) and craniocaudad (CC) views of both breasts were obtained. CAD: Full Field Digital Mammography with Computer Added Detection was performed. COMPARISON: Comparison is made with prior study September 03, 2023 and June 01, 2022. FINDINGS: Breast Composition: The breasts are extremely dense, which lowers the sensitivity of mammography. There are no dominant masses or suspicious calcifications. No other significant abnormalities are identified. There has been no significant change since the prior study. BI/SCRN MAMM (CAD)W/PARAM BILAT IMPRESSION: Stable bilateral screening mammogram. Yearly follow-up mammogram recommended. (A) ASSESSMENT CATEGORY: BIRADS Category 1: Negative. A letter regarding these results will be sent to the patient by the facility within 30 days. Approximately 10% of breast cancers are not detected by mammography. A normal mammogram should not delay biopsy of a clinically suspicious abnormality. [id number] Electronically Signed: Romel Cat MD at 14:10 EST , CC: Dr. France Howard MD; Dr. Viv Rod DO Grad Intern: Signed Normal [facility] Internal Medicine Office Vis arely 08-31-2024 Internal Medicine Office Visit [facility] [address] [place] [address] [place] [address] OFFICE VISIT Date of Service: 09/11/24 MR#: [id number] Acct: [id number] Name: KATY GAMBLE Rep #: [id number] : 1980 Provider: Dr. France fung MD Age/Sex: 44/F Location: [facility] Status: Signed Intake Vital Signs 05/16/24 15:34 09/11/24 14:48 Height 5 ft 5 ft Weight: 114 lb 6 oz BMI 22.3 BP 130/80 H Blood Pressure Location Lt brachial Position Sitting Respiration 16 Pulse 111 H Pulse Source Monitor Temp 97.3 F L Temp Source Temporal Pulse Oximetry (%) 98 Oxygen Delivery Method room air Intake Visit Reasons: 3 M FU Chief Complaint: 3m f/u Investor Relations Manager Required: No Accompanied by: Self Is patient in pain?: No Allergies No Known Allergies Allergy (Verified 09/11/24 14:46) Medications ???Medication ???Instructions ???Recorded ???Confirmed ???Type hydroxyzine HCl 10 mg tablet 10 mg PO TID PRN anxiety #10 tabs 03/15/23 09/11/24 Rx amlodipine 5 mg tablet 5 mg PO DAILY #30 tabs 05/01/24 09/11/24 Rx PFSH Medical History Anxiety Alcohol use Smoker Hypertension Surgical History History of endometrial ablation History of biopsy H/O wisdom tooth extraction Family History Mother Hypertension Father Hypertension CVA (cerebral vascular accident) Grandfather Cancer Grandmother Cancer of fallopian tube Grandmother Breast cancer Aunt Breast cancer Social History household members: spouse current occupational status: employed 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 She is up to date on her routine blood work and screening.??? She doesn't want a flu shot.??? She continues to do well without the cigarettes for the most part. She reports she has had a couple since she was last seen. She does not need a refill today.??? She reports she is eating healthy and is trying to stay active. She has been monitoring her blood pressure at home and reports that it has been reading similarly. She has been taking her medication as prescribed without problems. She is trying to monitor her salt intake. She reports she hasn't needed the atarax at all since she was last seen and states her anxiety has been well controlled overall. She reports her jaw pain has been doing well overall. She reports certain days seem to flare up, but otherwise has been manageable. She has no questions or concerns at this time. She recently had surgery through her OBGYN for her menstrual bleeding and reports it all went well without complications. ROS Const Constitutional: No body ache, chills, excessive sweating, fatigue, fever(s), frequent falls, headache(s), snoring, weakness, weight change or change in appetite Eyes Eyes: No blurry vision, change in vision, eye pain or Light sensitivity ENT ENT: Positive for nasal congestion (improving); No abnormal hearing, ear or mastoid pain, tinnitus, headache(s), neck pain or sore throat Resp Respiratory: No cough, shortness of breath, snoring or wheezing Cardio Cardiology: No chest pain at rest, chest pain with exertion, excessive sweating, dyspnea on exertion, lightheadedness, orthopnea, palpitations or other (no leg swelling) Gastro GI: No abdominal pain, change in bowel habits, constipation, cramping, diarrhea, nausea/dyspepsia or vomiting Genitourinary-Female: Positive for light periods; No difficulty urinating, burning urination, painful urination, urinary incontinence or urinary frequency Musc Musculoskeletal: No abnormal gait, joint pain, back pain, limited range of motion, muscle weakness, neck pain, numbness or tingling Skin Skin: No dry skin, redness, lesions, itchy eyes, rash or wounds Neuro Neurology: No abnormal gait, abnormal hearing, dizziness, weakness, frequent falls, headache(s), memory loss, numbness, tingling or fainting Psych Psychiatric: No anxiety, No change in appetite, No depression, No memory loss and No Thoughts of harming yourself/Others Endo Endocrine: No cold intolerance, excessive sweating, fatigue, flushing, heat intolerance, increased thirst/drinking, increased hunger (more content not included)... Normal [facility] Warehouse Freight Handler Office Visit Reporton 05-16-2024 Warehouse Freight Handler Office Visit Report [facility] [address] [place] [address] OFFICE VISIT Date of Service: 05/16/24 MR#: [id number] Acct: [id number] Name: KATY GAMBLE Rep #: [id number] : 1980 Provider: Dr. Viv Perales DO Age/Sex: 43/F Location: [facility] Status: Signed Intake Vital Signs 05/02/24 09:02 05/04/24 11:03 05/16/24 15:34 05/16/24 15:34 Height 5 ft 5 ft 5 ft 5 ft Weight: 110 lb 8 oz BMI 21.5 BP 146/93 H Intake Visit Reasons: 2 wk Post op ablation Investor Relations Manager Required: No Is patient in pain?: No Allergies No Known Allergies Allergy (Verified 05/16/24 15:34) Medications ???Medication ???Instructions ???Recorded ???Confirmed ???Type hydroxyzine HCl 10 mg tablet 10 mg PO TID PRN anxiety #10 tabs 03/15/23 05/16/24 Rx amlodipine 5 mg tablet 5 mg PO DAILY #30 tabs 05/01/24 05/16/24 Rx Post menopausal: No Patient : No : No PFSH Medical History Anxiety Alcohol use Smoker Hypertension Surgical History History of endometrial ablation History of biopsy H/O wisdom tooth extraction Family History Mother Hypertension Father Hypertension CVA (cerebral vascular accident) Grandfather Cancer Grandmother Cancer of fallopian tube Grandmother Breast cancer Aunt Breast cancer Social History household members: spouse current occupational status: employed 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 She states that the fluid discharge has stopped and she denies bleeding, cramping, vaginal odor. History 2 Elective abortions Hx Para 2 Spontaneous abortions Hx # Term Pregnancies Ectopic pregnancies Hx # Pregnancies Multiple births # of living children Past Pregnancies Del. Date Name GA/Weeks Outcome Route Bth Weight Gen [facility] Terrell Unknown Jc (girl) EDNA ENT ENT: Reports system reviewed and no additional complaints, except as documented Cardio Card: Reports system reviewed and no additional complaints, except as documented Resp Resp: Denies cough, dyspnea or dyspnea on exertion GI GI: Denies abdominal pain, bloating or change in bowel habits : Denies vaginal odor or vaginal pruritus Musc Musc: Reports system reviewed and no additional complaints, except as documented Exam Const General: cooperative, healthy appearing and comfortable Resp Effort Inspection: normal respiratory effort GI Palpation: soft and nontender Rectal Exam: other Extrem General: no edema Coding Level of Care Code Off vis,est,level 3 Diagnoses Status post hysteroscopy Z98.890 Hypertension I10 Assessment and Plan Assessment and Plan (1) Status post hysteroscopy: Status: Acute (2) Hypertension: Status: Chronic Comment: CONTROLLED WITH MED Plan: pt to follow up with pcp for hypertension. rto in one year for annual exams or sooner as needed 05/16/24 1638 Date Viv Rod DO Cosigner Signature: Date (if applicable) CC: Normal [facility] Discharge Instructionon 04-11 Discharge Instruction [facility] Medical Records Department [address] [place] [address] Instructions for Home/Discharge Instructions 05/02/24 1222 MR#: [id number] Acct: [id number] Name: KATY GAMBLE Rep #: [id number] : 1980 43 From: Viv Rod DO PCP: Dr. France Howard MD Status:REG [facility] Discharge Instructions Diet Discharge Diet: No restrictions Activity Discharge Activity: Return to Normal Activity, May Shower and May Take a Tub Bath (after 1 week) May resume sexual activity in: 1-2 weeks Weight Bearing Status: Weight bearing as tolerated Lifting Restrictions: none Dressing / Incision Call your doctor if you observe: Fever of 101 or Higher, Using more than 1 pad per hour, Shortness of breath and Uncontrolled pain Follow Up Care Please Follow Up With: Viv Rod DO When: Call [phone] to schedule appointment. Test Results: Test results from this visit will be discussed in further detail at your follow-up appointment, if applicable. Discharge Plan Admission Primary Reason for Your Visit: hysteroscopy, ablation Attending Provider: Viv Rod Primary Care Provider: France Howard Instructions Print Language: Swedish Discharge Orders/Prescriptions Prescriptions: New ibuprofen 800 mg tablet 800 mg PO Q8H PRN (Reason: pain) Qty: 30 0RF Continued hydroxyzine HCl 10 mg tablet 10 mg PO TID PRN (Reason: anxiety) Qty: 10 0RF amlodipine 5 mg tablet 5 mg PO DAILY Qty: 30 5RF Referrals / Follow Up: France Howard MD [Primary Care Provider] - Disposition Disposition (needs filled in before D/C Order can be placed): Home, Self Care 05/02/24 1224 Viv Idaniaheron Teri TORRES CC: Dr. France Howard MD Signed [facility] MR/POSTOP.ANE 05-02-2024 MR/POSTOP.[facility] Medical Records Department [address] [place] [address] Anesthesia Postop Eval I 05/02/24 1238 MR#: [id number] Acct: [id number] Name: KATY GAMBLE Rep #: [id number] : 1980 43 From: Artur Singh PCP: Dr. France Howard MD Status:REG [facility] Y Race: C Location: [place] [address] Anesthesia: Postop Eval I Current Vital Signs Temperature: 97.2 F Pulse Rate: 68 Blood Pressure: 91/62 Respiratory Rate: 16 Pulse Ox: 97 Oxygen Delivery Method: Room Air Assessment Airway patent: Yes Spontaneous unlabored respirations: Yes Mental status: Awake and Calm nausea: No Vomiting: No Anesthesia Complication: No Fluid Hydration Crystalloid volume administer (ml): 800 Total IV fluid infused: 800 Progress Note Anesthesia document: Postop Eval 1 completed: Yes 05/02/24 1239 Date Artur Davenport Signature: Date CC: Signed [facility] [id number] 05-02-2024 MR/POSTOPAN2 [facility] Medical Records Department [address] [place] [address] Anesthesia Postop Eval II 05/02/24 1408 MR#: [id number] Acct: [id number] Name: KATY GAMBLE APPLE Rep #: [id number] : 1980 43 From: Darrell Driver MD PCP: Dr. France Howard MD Status:DEP [facility] Y Race: C Location: [facility] Anesthesia Postop Eval I Sum Postop Eval Completion status Anesthesia document: Postop Eval 1 completed: Yes Anesthesia Postop Eval I Summary Anesthesia Postop Eval I Summary: Anesthesia Postop Eval I: Assessment Summary Airway patent Yes 05/02/24 12:39 [email or web address] Spontaneous unlabored Yes 05/02/24 12:39 [email or web address] respirations Mental status Awake,Calm 05/02/24 12:39 [email or web address] nausea No 05/02/24 12:39 [email or web address] Vomiting No 05/02/24 12:39 [email or web address] Anesthesia Postop Eval I: Fluid Summary Crystalloid volume administer 800 05/02/24 12:39 [email or web address] (ml) Colloids volume administered ( ml) Blood Product volume administered (ml) Total IV fluid infused 800 05/02/24 12:39 [email or web address] Anesthesia Postop Eval I: Summary Notes Anesthesia Complication No 05/02/24 12:39 [email or web address] Anesthesia Complication Comment: Post-operative progress note Anesthesia: Postop Eval II Evaluation Mental status: Awake and Calm Pain Level: 0 nausea: No Vomiting: No Complications Anesthesia Complication: No 05/02/24 140 Date Darrell Driver MD Cosigner Signature: Date CC: Signed Normal [facility] Operative Reporton 4 Operative Report [facility] Medical Records Department [address] [place] [address] Operative Report 05/02/24 1220 MR#: [id number] Acct: [id number] Name: KATY GAMBLE Rep #: [id number] : 1980 43 From: Viv Rod DO PCP: Dr. France Howard MD Status:REG [facility] Location: [place] [address] Problems Associated Problem List Diagnoses (1) Abnormal uterine bleeding: Report of Operation Date of Procedure: 05/02/24 Pre-Operative Diagnosis: menorrhagia Post-Operative Diagnosis: menorrhagia Surgery/Procedure Performed:: hysteroscopy, berta ablation Description of Surgical Findings:: normal appearing endometrium and ostia. Surgeon: Viv Rod vp home health: None Type of Anesthesia: MAC and Topical Anesth Description of Procedure: Patient was prepped and draped in a normal sterile fashion under MAC anesthesia. A weighted speculum was placed in the vagina and the anterior lip of the cervix was grasped with a single-tooth tenaculum. A paracervical block was placed with 1% lidocaine. Cervix was progressively dilated to allow passage of a 5 mm hysteroscope. The lining was fully visualized and noted to have a uniform appearing endometrium . Uterine sounded to 8 cm. The Berta device was opened and the cavity length was found to be 4.5 cm. Device was inserted into the uterus and balloon inflated and device deployed. Integrity of the cavity was confirmed and a 2 minute treatment cycle was completed without complication. All instruments were removed from the vagina and excellent hemostasis was noted. Patient was awoken and taken to recovery in stable condition. Complications none Admit VTE Documentation VTE Present on Admission: No VTE Mechan Device Prophylaxis: SCD's VTE Pharm Prophylaxis ordered?: No Multi Select Codes Urinary/Genital Urinary/Genital CPT Codes: 60901 Berta/Novasure 05/02/24 1222 Cosigner Signature (if applicable): CC: Dr. France Howard MD; Dr. Viv Rod DO Signed Normal [facility] ,Urineon 05-02-2024 Beta HCG ( test) Ql (U) Negative Normal [facility] Comment on above: Result Comment: Very dilute urine specimens, as indicated by a low specific gravity, may not contain pest control service representative levels of hCG. If is still suspected, a first morning urine specimen should be collected 48 hours later and tested. Performed By: #### L 400.6250, BTSPAT ####[facility] [id number] [place], [address] Type AND Screen - PAT ONLYon 05-02-2024 Ab SCREEN GEL Negative Normal [facility] Comment on above: Order Comment: Surge ry Date: 05/02/24Reason for Laboratory Test [id number] D C ABLATION Performed By: #### L 400.7600, BTSPAT ####[facility] [address] [place], [address] CBC W/Diff, Automatedon 07-0 Absolute Lymph 1.40 X10 3/uL Normal 0.83-4.51 [facility] Comment on above: Performed By: #### L 100.0100, L500.4050 #### [facility] [address] [place], [address] Absolute Neut 3.4 X10 3/uL Normal 2.0-7.7 [facility] Comment on above: Performed By: #### L 100.0100, L500.4050 #### [facility] [address] [place], [address] Basophils/100 WBC (Bld) 1.1 % High 0-1 [facility] Comment on above: Performed By: #### L 100.0100, L500.4050 #### [facility] [address] [place], [address] Eosinophils/100 WBC (Bld) 2.2 % Normal 0-5 [facility] Comment on above: Performed By: #### L 100.0100, L500.4050 #### [facility] [address] [place], [address] Erythrocyte distribution width (RBC) [Ratio] 11.8 % Normal 11.6-14.6 [facility] Comment on above: Performed By: #### L 100.0100, L500.4050 #### [facility] [address] [place], [address] Hematocrit (Bld) [Volume fraction] 42.3 % Normal 37-47 [facility] Comment on above: Performed By: #### L 100.0100, L500.4050 #### [facility] [address] [place], [address] Hemoglobin (Bld) [Mass/Vol] 14.5 g/dL Normal 12.0-15.0 [facility] Comment on above: Performed By: #### L 100.0100, L500.4050 #### [facility] [address] [place], [address] IG% 0.400 Normal 0.0-0.9 [facility] Comment on above: Result Comment: IG% - Immature Granulocytes (promyelocytes, myelocytes and metamyelocytes) > 1% indicates that a LEFT SHIFT is Present. Performed By: #### L 100.0100, L500.4050 #### [facility] [address] [place], [address] Lymphocytes/100 WBC (Bld) 25.8 % Normal 19-41 [facility] Comment on above: Performed By: #### L 100.0100, L500.4050 #### [facility] [address] [place], [address] MCH (RBC) [Entitic mass] 32.3 pg High 27.0-32.0 [facility] Comment on above: Performed By: #### L 100.0100, L500.4050 #### [facility] [address] [place], [address] MCHC (RBC) [Mass/Vol] 34.3 g/dL Normal 32-36 [facility] Comment on above: Performed By: #### L 100.0100, L500.4050 #### [facility] [address] [place], [address] MCV (RBC) [Entitic vol] 94.2 fL Normal 81-99 [facility] Comment on above: Performed By: #### L 100.0100, L500.4050 #### [facility] [address] [place], [address] Monocytes/100 WBC (Bld) 7.2 % Normal 0-10 [facility] Comment on above: Performed By: #### L 100.0100, L500.4050 #### [facility] [address] [place], [address] Neutrophils/100 WBC (Bld) 63.3 % Normal 47-70 [facility] Comment on above: Performed By: #### L 100.0100, L500.4050 #### [facility] [address] [place], [address] Nucleated RBC (Bld) [#/Vol] 0 10*3/uL Normal 0-5 [facility] Comment on above: Performed By: #### L 100.0100, L500.4050 #### [facility] [address] [place], [address] Platelet mean volume (Bld) [Entitic vol] 9.9 fL Normal 6.2-12.0 [facility] Comment on above: Performed By: #### L 100.0100, L500.4050 #### [facility] [address] [place], [address] Platelets (Bld) [#/Vol] 248 10*3/uL Normal 150-450 [facility] Comment on above: Performed By: #### L 100.0100, L500.4050 #### [facility] [address] [place], [address] RBC (Bld) [#/Vol] 4.49 10*6/uL Normal 4.2-5.4 [place] Comment on above: Performed By: #### L 100.0100, L500.4050 #### [facility] [address] [place], [address] RDW SD 40.6 fl Normal 35.1-43.9 [facility] Comment on above: Performed By: #### L 100.0100, L500.4050 #### [facility] [address] [place], [address] WBC (Bld) [#/Vol] 5.4 10*3/uL Normal 4.4-11.0 [facility] Comment on above: Performed By: #### L 100.0100, L500.4050 #### [facility] [address] [place], [address] Comprehensive Metabolic Prof ilon 04-11-2024 Albumin [Mass/Vol] 4.3 g/dL Normal 3.2-5.0 [facility] Comment on above: Performed By: #### L 100.0100, L500.4050 #### [facility] [address] [place], [address] Albumin/Globulin [Mass ratio] 1.3 {ratio} Normal 0.9-2.4 [facility] Comment on above: Performed By: #### L 100.0100, L500.4050 #### [facility] [address] [place], [address] ALK P 70 U/L Normal 45-117 [facility] Comment on above: Performed By: #### L 100.0100, L500.4050 #### [facility] [address] [place], [address] ALT [Catalytic activity/Vol] 15 U/L Normal 13-56 [facility] Comment on above: Performed By: #### L 100.0100, L500.4050 #### [facility] [address] [place], [address] AST [Catalytic activity/Vol] 15 U/L Normal 15-37 [facility] Comment on above: Performed By: #### L 100.0100, L500.4050 #### [facility] [address] [place], [address] Bilirubin [Mass/Vol] 0.60 mg/dL Normal 0.20-1.00 [facility] Comment on above: Result Comment: For patients on eltrombopag therapy, use of Dimension [place] TBIL is not recommended. Performed By: #### L 100.0100, L500.4050 #### [facility] [address] [place], [address] BUN/CRE 20.4 RATIO High 10-20 [facility] Comment on above: Performed By: #### L 100.0100, L500.4050 #### [facility] [address] [place], [address] CA,Total 9.7 mg/dL Normal 8.5-10.1 [facility] Comment on above: Performed By: #### L 100.0100, L500.4050 #### [facility] [address] [place], [address] Chloride [Moles/Vol] 105 mmol/L Normal 98-107 [facility] Comment on above: Performed By: #### L 100.0100, L500.4050 #### [facility] [address] [place], [address] CO2 [Moles/Vol] 25.0 mmol/L Normal 21.0-32.0 [facility] Comment on above: Performed By: #### L 100.0100, L500.4050 #### [facility] [address] [place], [address] Creatinine [Mass/Vol] 0.64 mg/dL Normal 0.55-1.02 [facility] Comment on above: Result Comment: The validity of the calculated GFR GFRAA in patients over 70 years has not been determined. Clinical correlation is essential. Performed By: #### L 100.0100, L500.4050 #### [facility] [address] [place], [address] EST GFR - AA 132 mL/min Normal >60 [facility] Comment on above: Result Comment: Afri can [place]ian GFR Calc Performed By: #### L 100.0100, L500.4050 #### [facility] [address] [place], [address] GAP 7 Normal 5-15 [facility] Comment on above: Performed By: #### L 100.0100, L500.4050 #### [facility] [address] [place], [address] GFR/1.73 sq M.predicted among non-blacks MDRD (S/P/Bld) [Vol rate/Area] 109 mL/min/{1.73_m2} Normal >60 [facility] Comment on above: Result Comment: Non- GFR Calc Performed By: #### L 100.0100, L500.4050 #### [facility] [address] [place], [address] Globulin (S) [Mass/Vol] 3.3 g/dL Normal 2.2-4.2 [facility] Comment on above: Performed By: #### L 100.0100, L500.4050 #### [facility] [address] [place], [address] Glucose [Mass/Vol] 101 mg/dL Normal 74-106 [facility] Comment on above: Result Comment: Fast ing Glucose result from 100 to 125 mg/dL suggests IMPAIRED HOMEOSTASIS per A.D.A. criteria. Performed By: #### L 100.0100, L500.4050 #### [facility] [address] [place], [address] Potassium [Moles/Vol] 3.6 mmol/L Normal 3.5-5.1 [facility] Comment on above: Performed By: #### L 100.0100, L500.4050 #### [facility] [address] [place], [address] Sodium [Moles/Vol] 137 mmol/L Normal 136-145 [facility] Comment on above: Performed By: #### L 100.0100, L500.4050 #### [facility] [address] [place], [address] T PROT 7.6 g/dL Normal 6.4-8.2 [facility] Comment on above: Performed By: #### L 100.0100, L500.4050 #### [facility] [address] [place], [address] Urea nitrogen [Mass/Vol] 13 mg/dL Normal 7-18 [facility] Comment on above: Performed By: #### L 100.0100, L500.4050 #### [facility] [address] [place], [address] Internal Medicine Office Vis arely 04-10-2024 Internal Medicine Office Visit [facility] [address] [place] [address] [place] [address] OFFICE VISIT Date of Service: 04/11/24 MR#: [id number] Acct: [id number] Name: KATY GAMBLE Rep #: [id number] : 1980 Provider: Dr. France fung MD Age/Sex: 43/F Location: [facility] Status: Signed Intake Vital Signs 10/27/23 09:29 04/06/24 08:40 04/11/24 10:04 Height 5 ft 5 ft 5 ft Weight: 111 lb BMI 21.7 BP 126/80 H Blood Pressure Location Lt brachial Position Sitting Respiration 18 Pulse 101 H Pulse Source Monitor Temp 99 F Temp Source Temporal Pulse Oximetry (%) 99 Oxygen Delivery Method room air Intake Visit Reasons: 6 m fu Investor Relations Manager Required: No Is patient in pain?: No Allergies No Known Allergies Allergy (Verified 04/11/24 09:59) Medications ???Medication ???Instructions ???Recorded ???Confirmed ???Type hydroxyzine HCl 10 mg tablet 10 mg PO TID PRN anxiety #10 tabs 03/15/23 04/11/24 Rx amlodipine 5 mg tablet 5 mg PO DAILY #30 tabs 10/25/23 04/11/24 Rx Nurse's Note: States she is going to have uterine ablation at end of month, as she had a biopsy. Dr. Dickerson follows. [facility] Medical History Hypertension Surgical History (Updated 04/11/24 @ 10:[address] France Howard MD) History of biopsy H/O wisdom tooth extraction Family History Mother Hypertension Father Hypertension CVA (cerebral vascular accident) Grandfather Cancer Grandmother Cancer of fallopian tube Grandmother Breast cancer Aunt Breast cancer Social History (Updated 04/11/24 @ 10:[address] 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 She is due for some routine blood work and is up to date on her screening.??? She previously declined any COVID vaccines.??? She continues to do well without the cigarettes. She does not need a refill today.??? She reports she is eating healthy and is trying to stay active. She has been monitoring her blood pressure at home and reports that it has been in the 130/80 range. She reports the highest reading in the last couple of months has been around 138/84. She has been taking her medication as prescribed without problems. She is trying to monitor her salt intake. She reports she hasn't needed the atarax at all since she was last seen and states her anxiety has been well controlled. She reports her jaw pain has been doing well overall. She reports certain days seem to flare up, but otherwise has been manageable. The patient reports she is supposed to get a uterine ablation later this month for heavy menstrual periods/cramping. She follows closely with OBGYN for this. She has no questions or concerns at this time. ROS Const Constitutional: No body ache, chills, excessive sweating, fatigue, fever(s), frequent falls, headache(s), snoring, weakness, weight change, sleep problems or change in appetite Eyes Eyes: No blurry vision, change in vision, eye pain or Light sensitivity ENT ENT: No abnormal hearing, ear or mastoid pain, tinnitus, nasal congestion, headache(s), neck pain or sore throat Resp Respiratory: No cough, shortness of breath, snoring or wheezing Cardio Cardiology: Positive for palpitations (occasional); No chest pain at rest, chest pain with exertion, excessive sweating, shortness of breath, dyspnea on exertion, lightheadedness, orthopnea or other (no leg swelling) Gastro GI: Positive for cramping (with menstrual period); No abdominal pain, change in bowel habits, constipation, diarrhea, nausea/dyspepsia or vomiting Genitourinary-Female: Positive for abnormal periods; No difficulty urinating, burning urination, painful urination, urinary incontinence, urinary frequency, abnormal vaginal bleeding or pelvic pain Musc Musculoskeletal: No abnormal gait, joint pain, back pain, limited range of motion, neck pain or numbness Skin Skin: No dry skin, redness, lesions, itchy eyes, rash or wounds Neuro Neurology: No abnormal gait, abnormal hearing, dizziness, weakness, frequent falls, headache(s), memory loss, numbness or fainting Psych Psychiatric: No anxiety, No change in appetite, No depression, No memory loss and No Thoughts of harming your (more content not included)... Normal [facility] Genital Culture Comprehensiv sonya 04-09-2024 VAC Reason for Exam: vaginal discharge Normal vaginal amy isolated. No yeast, Neisseria or beta-hemolytic Streptococcus isolated. G. vaginalis (Presumptive) Amount Growth 3+ Normal [facility] Comment on above: Performed By: #### M 100.1999, M100.3200 ####[facility] [id number] [place], [address] Gram Stainon 04-06-2024 GS Reason for Exam: vaginal discharge Gram Stain 3+ Gram variable paola No Gram negative diplococci 1+ White Blood Cells Score = 7 Interpretation: 0-3 Normal, 4-6 Intermediate, 7-10 Positive BV Normal [facility] Comment on above: Performed By: #### M 100.1999, M100.3200 ####[facility] [address] 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 [place] [address] OFFICE VISIT Date of Service: 04/06/24 MR#: [id number] Acct: [id number] Name: KATY GAMBLE Rep #: [id number] : 1980 Provider: Dr. Viv Perales DO Age/Sex: 43/F Location: [facility] Status: Signed Intake Vital Signs 02/15/24 12:57 04/06/24 08:38 04/06/24 08:40 Height 5 ft 5 ft 5 ft Weight: 111 lb 8 oz BMI 21.7 BP 154/89 H Intake Visit Reasons: EMB Investor Relations Manager Required: No Is patient in pain?: No Allergies No Known Allergies Allergy (Verified 04/06/24 08:37) Medications ???Medication ???Instructions ???Recorded ???Confirmed ???Type hydroxyzine HCl 10 mg tablet 10 mg PO TID PRN anxiety #10 tabs 03/15/23 04/06/24 Rx amlodipine 5 mg tablet 5 mg PO DAILY #30 tabs 10/25/23 04/06/24 Rx Post menopausal: No Patient : No : No PFSH [facility] Medical History Hypertension Surgical History H/O wisdom tooth extraction Family History Mother Hypertension Father Hypertension CVA (cerebral vascular accident) Grandfather Cancer Grandmother Cancer of fallopian tube Grandmother Breast cancer Aunt Breast cancer Social History household members: spouse current occupational status: employed 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 Date Name GA/Weeks Outcome Route Bth Weight Infant Gen Labor Lgth Anesthesia Del Locatn Provider FOB Unknown Terrell Unknown Jc (girl) HPI EMB Details: KATY GAMBLE is a 43 year old who presents for EMB for tentatively scheduled ablation ROS Const ROS Unobtainable: All systems reviewed are unremarkable except as noted in H Resp Resp: Reports system reviewed and no additional complaints, except as documented; Denies cough GI GI: Reports as per HPI Psych Psych: Reports system reviewed and no additional complaints, except as documented Exam Const General: cooperative, healthy appearing, comfortable and no acute distress Resp Effort Inspection: normal respiratory effort General: bimanual renal exam normal bilaterally External Female Exam: normal appearance of the urethra Urethra: normal appearance of the urethra Speculum Exam - Vagina: normal appearance of the vagina Speculum Exam - Cervix: normal appearance of the cervix Bimanual Exam- Adnexa, other: normal adnexae and normal Pelvic Support: normal Skin General: no rashes or lesions noted Psych Appearance: grossly normal Speech and Movement: speech and movement normal Office Procedures Endometrial Biopsy Endometrial Biopsy Test: Yes declined Consent Signed: Yes Time out checklist: patient tenaculum used: Yes dilator used: No Details: Cervix prepped with betadine and pipelle inserted into uterus without complication. Specimen obtained and sent to lab for analysis. All instruments removed from vagina without complications. Excellent hemostasis noted. Coding Level of Care Code Off vis,est,level 3 Diagnoses Abnormal uterine bleeding N93.9 Hypertension I10 CPT Codes Endometrial Biopsy (20831) Assessment and Plan Assessment and Plan (1) Abnormal uterine bleeding: Status: Acute Plan: emb performed. will call with results and proceed with ablation if appropriate. (2) Hypertension: Status: Chronic Orders: Orders Endometrial Biopsy Today N93.9 - Abnormal uterine and vaginal bleeding, unspecified 04/06/24901 Date Viv Rod DO [facility] Signature: Date (if applicable) CC: Normal [facility] Surgery Specimen Level Francisca 04-06-2024 Surgery Specimen Level IV -------- Patient Age/Sex Location Account Attending Physician -------- KATY GAMBLE 43/F LABSPEC [id number] Dr. Viv Rod, Petros -------- Specimen: [id number] Received: 04/06/24-1157 Status: FELIPE Crisostomo Num: [id number] Spec Type: ENDOM BX/C [place] Dr: Dr. Viv Rod, [facility] OPERATION: Endometrial biopsy PRE-OP DIAGNOSIS: Abnormal uterine bleeding TISSUE SUBMITTED: Endometrial lining -------- MICROSCOPIC DIAGNOSIS Endometrial biopsy: Proliferative endometrium. Fragments of benign ectocervical and endocervical mucosa. [facility] 04/07/2024 MICROSCOPIC DESCRIPTION Slides are reviewed. GROSS DESCRIPTION Received is one container labeled with the patient's name and not further designated. The specimen consists of multiple irregular fragments of pink-red soft tissue that in aggregate measure 2.0 x 1.0 x 0.2 cm. The specimen is totally submitted in one cassette. [facility] 04/06/2024 TC:4 CPT:45887 -------- Patient Age/Sex Location Account Attending Physician -------- KATY GAMBLE 43/F LABSPEC [id number] Dr. Viv Rod, Petros -------- Signed (signature on file) Dr. Colton Richey MD 04/07/24 1122 -------- Normal [facility] Comment on above: Performed By: #### P SUIV ####[facility] [id number] [facility] [place], [place], [address] Pelvic w/ Transvaginalon Pelvic w/ Transvaginal [facility] Imaging Services [address] [place], [place] [address] Pelvic w/ Transvaginal MR#: [id number] Acct: [id number] Name: KATY GAMBLE Rep #: [id number] : 1980 F 43 From: Esvin Morrell PCP: Dr. France Howard MD Status: [facility] Study: Pelvic w/ Transvaginal Date of Exam: 03/14/24 Exam# [id number] Ordering Dr: Viv Rod DO [id number] INDICATION: abnormal uterine bleeding EXAMINATION: Ultrasound US Pelvis Non OB Complete With Transvaginal Imaging TECHNIQUE: Transabdominal and transvaginal pelvic ultrasound was performed. Grayscale, spectral waveform, and color flow Doppler evaluation of the adnexa. COMPARISON: None. __ FINDINGS: UTERUS: Anteverted. The uterus measures 8.6 x 6.1 x 5.0 cm. There is no uterine mass. The endometrial stripe measures 7.8 in AP diameter which is within normal limits. Nabothian cysts are present within the cervix. RIGHT OVARY: 3.6 x 2.3 x 1.5 cm. Non-enlarged, normal echogenicity. There is normal arterial inflow and venous outflow present in the right ovary. LEFT OVARY: 2.2 x 2.2 x 1.4 cm. Non-enlarged, normal echogenicity. There is normal arterial inflow and venous outflow present in the left ovary. FREE FLUID: None. US/Pelvic w/ Transvaginal IMPRESSION: 1. Normal sonographic appearance of uterus and endometrium, endometrium measures 7.8 mm. No endometrial masses or abnormal fluid collections or blood flow. 2. Nabothian cysts are present in the cervix. 3. Normal sonographic appearance both ovaries without solid or cystic masses or abnormal blood flow. 4. No evidence of torsion. 5. No free fluid. Electronically Signed: Esvin Dewey MD at 23:01 EDT , CC: Dr. France Howard MD; Dr. Viv Rod DO Grad Intern: Signed Normal [facility] PAP I-G w/rfx hrHPV-Aptimaon 02-23-2024 ADEQ Comment Normal . [facility] Comment on above: Order Comment: Speci men Comment: [id number] Comment: Source.............CervixSpecimen Comment: No. of containers..01 ThinPrep Vial Result Comment: Sati sfactory for evaluation. Endocervical and/or squamous metaplastic cells (endocervical component) are present. Performed By: #### L 7400.0353 ####[facility] [address] [place], [place], [id number] COMM . Normal . [facility] Comment on above: Order Comment: Speci men Comment: [id number] Comment: Source.............CervixSpecimen Comment: No. of containers..01 ThinPrep Vial Performed By: #### L 7400.0353 ####[facility] [address] [place], [place], [id number] COMMENT Comment Normal . [facility] Comment on above: Order Comment: Speci men Comment: [id number] Comment: Source.............CervixSpecimen Comment: No. of containers..01 ThinPrep Vial Result Comment: This liquid based ThinPrep(R) pap test was screened with the use of an image guided system. Performed By: #### L 7400.0353 ####[facility] [address] [place], [place], [id number] DIAG Comment Abnormal . [facility] Comment on above: Order Comment: Speci men Comment: [id number] Comment: Source.............CervixSpecimen Comment: No. of containers..01 ThinPrep Vial Result Comment: EPIT HELIAL CELL ABNORMALITY. ATYPICAL SQUAMOUS CELLS OF UNDETERMINED SIGNIFICANCE (ASC-US). Performed By: #### L 7400.0353 ####[facility] [address] [place], [place], [id number] HPV APTIMA, HR Negative Normal Negative [facility] Comment on above: Order Comment: Speci men Comment: [id number] Comment: Source.............CervixSpecimen Comment: No. of containers..01 ThinPrep Vial Result Comment: This nucleic acid amplification test detects fourteen high- risk HPV types (16,18,31,33,35,39,45,51,52,56,58,59,66,68) without differentiation. Performed at: - [facility] [id number] Dowel Inspector: Seble Mueller MD, Phone: [phone] Performed at: = - [facility] [id number] Dowel Inspector: Seble Mueller MD, Phone: [phone] Performed By: #### L 7400.0353 ####[facility] [address] [place], [place], [id number] HPV RFLX Comment Normal . [facility] Comment on above: Order Comment: Speci men Comment: [id number] Comment: Source.............CervixSpecimen Comment: No. of containers..01 ThinPrep Vial Result Comment: See below for HPV testing results. Performed By: #### L 7400.0353 ####[facility] [address] [place], [place], [id number] PAPSMR Comment Normal . [facility] Comment on above: Order Comment: Speci men Comment: [id number] Comment: Source.............CervixSpecimen Comment: No. of containers..01 ThinPrep Vial Result Comment: The Pap smear is a screening test designed to aid in the detection of premalignant and malignant conditions of the uterine cervix. It is not a diagnostic procedure and should not be used as the sole means of detecting cervical cancer. Both false-positive and false-negative reports do occur. Performed By: #### L 7400.0353 ####[facility] [address] [place], [place], [address] Path.prov.IDC-9 Comment Normal . [facility] Comment on above: Order Comment: Speci men Comment: [id number] Comment: Source.............CervixSpecimen Comment: No. of containers..01 ThinPrep Vial Result Comment: [id number] Performed By: #### L 7400.0353 ####[facility] [address] [place], [place], [id number] PERFORM Comment Normal . [facility] Comment on above: Order Comment: Speci men Comment: [id number] Comment: Source.............CervixSpecimen Comment: No. of containers..01 ThinPrep Vial Result Comment: Glenis Valentine, Roller Coaster Operator (ASCP) Performed By: #### L 7400.0353 ####[facility] [address] [place], [place], [id number] RECOMM Comment Abnormal . [facility] Comment on above: Order Comment: Speci men Comment: [id number] Comment: Source.............CervixSpecimen Comment: No. of containers..01 ThinPrep Vial Result Comment: Sugg est follow up as clinically appropriate. Performed By: #### L 7400.0353 ####[facility] [address] [place], [place], [id number] SIGN Comment Normal . [facility] Comment on above: Order Comment: Speci men Comment: [id number] Comment: Source.............CervixSpecimen Comment: No. of containers..01 ThinPrep Vial Result Comment: Simin Mueller MD, Pathologist Performed By: #### L 7400.0353 ####[facility] [address] [place], [address] Warehouse Freight Handler Office Visit Reporton 02-15-2024 Warehouse Freight Handler Office Visit Report [facility] [address] [place] [address] OFFICE VISIT Date of Service: 02/15/24 MR#: [id number] Acct: [id number] Name: KATY GAMBLE Rep #: [id number] : 1980 Provider: Dr. 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 Date Name GA/Weeks Outcome Route Bth Weight Gen Labor Lgth Anesthesia Del Locatn Provider FOB Unknown Terrell Unknown Jc (girl) HPI Encounter for routine gynecological examination Details: KATY GAMBLE is a 43 year old who presents for annual exam. states periods are becoming abnormal and heavy. is interested in treatment options other than control pills. Last PAP: 05/13/21, neg with no hpv History of abnormal PAP: no Last mammogram:09/03/23 History of abnormal mammogram: no Colon cancer screening: due age 47 Other preventative health care screenings: followed by pcp Female Reproductive History Cycle Length: 21-35 Bleeding Duration: 5 Questions: metorrhagia: No, sexually active: Yes, dyspareunia: No and PCB: No Menopausal Symptoms: No hot flashes, No night sweats, No weight change, No mood changes, No difficulty concentrating, No sleep problems and No change in libido ROS Const Constitutional: Reports as per HPI; Denies fatigue, increased appetite, poor appetite, night sweats, weight gain or weight loss Cardio Card: Denies chest pain Resp Resp: Denies cough or dyspnea GI GI: Reports as per HPI; Denies abdominal pain, bloating, constipation, nausea or vomiting : Reports as per HPI and other; Denies difficulty voiding, dysuria, hematuria, hot flashes, nipple discharge, pelvic pain, prolapse symptoms, urinary frequency, urinary incontinence, urinary urgency, vaginal discharge, vaginal dryness, vaginal odor or vaginal pruritus Skin Skin/Breast: Denies changing lesions, breast mass, breast pain, breast skin changes or nipple discharge Psych Psych: Denies anxiety, change in libido, depression or difficulty concentrating Exam Const General: cooperative, healthy appearing, comfortable, no acute distress, well developed and well groomed HENNM Head: normal to inspection and normocephalic Ears: hearing grossly normal bilaterally and external ears normal Nose: external nose normal Face and sinus: normal facial exam Neck Neck: normal visual inspection, full ROM and no lymphadenopathy Thyroid: thyroid normal Chest Chest palpation inspection: normal inspection of the chest Breast inspection: normal inspection of the breasts and normal inspection of the axillae Breast palpation: normal palpation of the breasts, normal palpation of the axillae and no axillary lymphadenopathy Resp Effort Inspection: normal respiratory effort GI Inspection: normal to (more content not included)... Normal [facility] Internal Medicine Office Vis arely 10-26-2023 Internal Medicine Office Visit [facility] [address] [place] [address] [place] [address] OFFICE VISIT Date of Service: 10/27/23 MR#: [id number] Acct: [id number] Name: KATY AGMBLE Rep #: [id number] : 1980 Provider: Dr. France fung MD Age/Sex: 43/F Location: [facility] Status: Signed Intake Vital Signs 04/26/23 09:32 10/27/23 09:29 Height 5 ft 5 ft Weight: 110 lb BMI 21.4 BP 104/68 Blood Pressure Location Lt brachial Position Sitting Respiration 14 Pulse 81 Pulse Source Monitor Temp 97.8 F Temp Source Temporal Pulse Oximetry (%) 98 Oxygen Delivery Method room air Intake Visit Reasons: 6 m fu Chief Complaint: DISCUSS BP MED Investor Relations Manager Required: No Is patient in pain?: No Allergies No Known Allergies Allergy (Verified 10/27/23 09:27) Medications hydroxyzine HCl 10 mg tablet 10 mg PO TID PRN anxiety #10 tabs 03/15/23 [Rx Confirmed 10/27/23] amlodipine 5 mg tablet 5 mg PO DAILY #30 tabs 10/25/23 [Rx Confirmed 10/27/23] PFSH Medical History No pertinent past medical history Surgical History H/O wisdom tooth extraction Family History Mother Hypertension Father Hypertension CVA (cerebral vascular accident) Grandfather Cancer Grandmother Cancer of fallopian tube Grandmother Breast cancer Aunt Breast cancer Social History (Updated 10/27/23 @ 09:[address] 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 She is due for some routine blood work and is up to date on her screening.??? She still doesn't want any immunizations.??? She doesn't smoke stating she quit altogether last month and has been doing well without them. She does not need a refill today.??? She reports she is eating healthy and is trying to stay active. She has been monitoring her blood pressure at home and reports that it has been in the 130/77 range. She really hasn't had any high readings recently. She has been taking her medication as prescribed without problems. She is trying to monitor her salt intake. She reports she hasn't needed the atarax at all since she was last seen and states her anxiety has been well controlled. At her last office visit, she had concerns about jaw pain and was told she had TMJ in the past. Exam and history was more suggestive of trigeminal neuralgia and a trial of carbamazepine was dis cussed, but she declined. She reports that it waxes and wanes in severity, but is mostly manageable. She isn't sure if she may have also had a stone in her parotid gland a few weeks ago. She states she has some swelling and massaged the area and felt a gush. She states that has felt better since then. She has previously seen ENT and maxillofacial surgery for all of these symptoms and was told there was no significant findings. She has no other questions or concerns at this time. She reports she was having some back pain in August, but that has since resolved. ROS Const Constitutional: No body ache, chills, excessive sweating, fatigue, fever(s), frequent falls, headache(s), snoring, weakness, weight change, sleep problems or change in appetite Eyes Eyes: No blurry vision, change in vision, eye pain or Light sensitivity ENT ENT: Positive for other (jaw pain); No abnormal hearing, ear or mastoid pain, tinnitus, nasal congestion, headache(s), neck pain or sore throat Resp Respiratory: No cough, shortness of breath, snoring or wheezing Cardio Cardiology: No chest pain at rest, chest pain with exertion, excessive sweating, shortness of breath, dyspnea on exertion, lightheadedness, orthopnea, palpitations or other (no leg swelling) Gastro GI: No abdominal pain, change in bowel habits, constipation, cramping, diarrhea, nausea/dyspepsia or vomiting Genitourinary-Female: No difficulty urinating, burning urination, painful urination, urinary incontinence, urinary frequency, abnormal periods, abnormal vaginal bleeding or pelvic pain Musc Musculoskeletal: No abnormal gait, joint pain, back pain (resolved), limited range of motion, neck pain, numbness or tingling Skin Skin: No dry skin, redne (more content not included)... Normal [facility] Absolute lymphocyte counton 10-20-2022 Lymphocytes Auto (Unsp spec) [#/Vol] 1.50 10*3/uL 0.83-4.51 [facility] Work Phone: Basophil percentageon 2022 Basophils/100 WBC (Bld) 1.3 % 0-1 [facility] Work Phone: Bilirubin [Mass/Vol] 0.50 mg/dL 0.20-1.00 [facility] Work Phone: Comment on above: For patients on eltr ombopag therapy, use of Dimension [place] TBIL is not recommended. Chloride [Moles/Vol] 109 mmol/L 98-107 [facility] Work Phone: Cholesterol [Mass/Vol] 189 mg/dL <200 [facility] Work Phone: Comment on above: <200 mg/dL Desirable 200-240 mg/dL Borderline >240 mg/dL High Risk Eosinophils/100 WBC (Bld) 4.2 % 0-5 [facility] Work Phone: Glucose [Mass/Vol] 102 mg/dL 74-106 [facility] Work Phone: Comment on above: Fasting Glucose resu lt from 100 to 125 mg/dL suggests IMPAIRED HOMEOSTASIS per A.D.A. criteria. Neutrophils (Bld) [#/Vol] 2.5 10*3/uL 2.0-7.7 [facility] Work Phone: Neutrophils/100 WBC (Bld) 55.1 % 47-70 [facility] Work Phone: Potassium [Moles/Vol] 3.8 mmol/L 3.5-5.1 [facility] Work Phone: Protein [Mass/Vol] 7.8 g/dL 6.4-8.2 [facility] Work Phone: Sodium [Moles/Vol] 139 mmol/L 136-145 [facility] Work Phone: Triglyceride [Mass/Vol] 84 mg/dL <199 [facility] Work Phone: Comment on above: The drugs N-Acetylcy steine and Metamizole may falsely depress this assay.Serum Triglycerides Reference Interval Normal <150 mg/dL Borderline high 150 - 199 mg/dL High 200 - 499 mg/dL Very High > or = 500 mg/dL WBC (Bld) [#/Vol] 4.5 10*3/uL 4.4-11.0 [facility] Work Phone: Blood erythrocytes count (nu mber/volume)on 10-20-2022 RBC (Bld) [#/Vol] 4.53 10*6/uL 4.2-5.4 [place] Work Phone: Blood hemoglobin measurement (mass/volume)on 10-20-2022 Hemoglobin (Bld) [Mass/Vol] 14.6 g/dL 12.0-15.0 [facility] Work Phone: Blood lymphocytes/100 leukoc yteson 10-20-2022 Lymphocytes/100 WBC (Bld) 33.2 % 19-41 [facility] Work Phone: Blood monocytes/100 leukocyt eson 10-20-2022 Monocytes/100 WBC (Bld) 6.0 % 0-10 [facility] Work Phone: Blood platelet mean volumeon 10-20-2022 Platelet mean volume (Bld) [Entitic vol] 9.8 fL 6.2-12.0 [facility] Work Phone: Determination of erythrocyte mean corpuscular volume (MCV)on 10-20-2022 MCV (RBC) [Entitic vol] 92.3 fL 81-99 [facility] Work Phone: Hematocrit Auto (Bld) [Volum e fraction]on 10-20-2022 Hematocrit (Bld) [Volume fraction] 41.8 % 37-47 [facility] Work Phone: Laboratory - Chemistry and C hemistry - challengeon 10-20-2022 ALP [Catalytic activity/Vol] 53 U/L 45-117 [facility] Work Phone: ALT [Catalytic activity/Vol] 20 U/L 13-56 [facility] Work Phone: CO2 [Moles/Vol] 25.0 mmol/L 21.0-32.0 [facility] Work Phone: Globulin (S) [Mass/Vol] 3.5 g/dL 2.2-4.2 [facility] Work Phone: Urea nitrogen/Creatinine [Mass ratio] 18.8 mg/mg 10-20 [facility] Work Phone: Laboratory - Hematology and Cell countson 10-20-2022 Erythrocyte distribution width (RBC) [Entitic vol] 39.3 fL 35.1-43.9 [facility] Work Phone: Erythrocyte distribution width (RBC) [Ratio] 11.6 % 11.6-14.6 [facility] Work Phone: Immature granulocytes/100 WBC (Bld) 0.200 % 0.0-0.9 [facility] Work Phone: Comment on above: IG% - Immature Granu locytes (promyelocytes, myelocytes and metamyelocytes) > 1% indicates that a LEFT SHIFT is Present. MCH (RBC) [Entitic mass] 32.2 pg 27.0-32.0 [facility] Work Phone: Nucleated RBC/100 WBC (Bld) [Ratio] 0 % 0-5 [facility] Work Phone: MCHC Auto (RBC) [Mass/Vol]on 10-20-2022 MCHC (RBC) [Mass/Vol] 34.9 g/dL 32-36 [facility] Work Phone: No Panel Informationon 10-20 Estimated GFR (MDRD) Amer 132 mL/min >60 [facility] Work Phone: Comment on above: GFR Calc Estimated GFR (MDRD) Non-Af Amer 109 mL/min >60 [facility] Work Phone: Comment on above: Non- GFR Calc Thyroid Stimulating Hormone (TSH) 1.35 uIU/mL 0.358-3.74 [facility] Work Phone: Platelets bldon 10-20-2022 Platelets (Bld) [#/Vol] 238 10*3/uL 150-450 [facility] Work Phone: Serum or plasma albumin mehul urement (mass/volume)on 10-20-2022 Albumin [Mass/Vol] 4.3 g/dL 3.2-5.0 [facility] Work Phone: Serum or plasma albumin/glob ulin mass ratioon 10-20-2022 Albumin/Globulin [Mass ratio] 1.2 {ratio} 0.9-2.4 [facility] Work Phone: Serum or plasma calcium mehul urement (mass/volume)on 10-20-2022 Calcium [Mass/Vol] 9.3 mg/dL 8.5-10.1 [facility] Work Phone: Serum or plasma cholesterol in HDL measurement (mass/volume)on 10-20-2022 Cholesterol in HDL [Mass/Vol] 76 mg/dL >40 [facility] Work Phone: Comment on above: The drugs N-Acetylcy steine and Metamizole may falsely depress this assay. Reference Range HDL <40 mg/dL Low HDL Cholesterol HDL >or= 60 mg/dL High HDL Cholesterol Serum or plasma cholesterol in VLDL measurement (mass/volume)on 10-20-2022 Cholesterol in VLDL [Mass/Vol] 17 mg/dL 5-40 [facility] Work Phone: Serum or plasma creatinine m easurement (mass/volume)on 10-20-2022 Creatinine [Mass/Vol] 0.64 mg/dL 0.55-1.02 [facility] Work Phone: Comment on above: The validity of the calculated GFR & GFRAA in patients over 70 years has not been determined. Clinical correlation is essential. Serum or plasma low density lipoprotein (LDL) cholesterol measurement (mass/volume)on 10-20-2022 Cholesterol in LDL [Mass/Vol] 96 mg/dL 0-130 [facility] Work Phone: Serum or plasma urea nitroge n measurement (mass/volume)on 10-20-2022 Urea nitrogen [Mass/Vol] 12 mg/dL 7-18 [facility] Work Phone: Thin prep Papanicolaou smear with manual screeningon 10-20-2022 Thin prep Papanicolaou smear with manual screening 11 U/L 15-37 [facility] Work Phone: Thin prep Papanicolaou smear with manual screening 5 5-15 [facility] Work Phone: Vital Signs Date Time Vital Sign Value Performing Clinician Dairus platt 05-09-2025 11:03-0400 Body height 152.[address] France Howard MD Work Phone: [facility] 05-09-2025 11:03-0400 Body mass index (BMI) [Ratio] 21.1 kg/m2 Dr. France Howard MD Work Phone: [facility] 05-09-2025 11:03-0400 Body temperature 97.4 [degF] Dr. France Howard MD Work Phone: [facility] 05-09-2025 11:03-0400 Body weight 48.[address] France Howard MD Work Phone: [facility] 05-09-2025 11:03-0400 Diastolic blood pressure 84 mm[Hg] Dr. France Howard MD Work Phone: [facility] 05-09-2025 11:03-0400 Heart rate 74 /min Dr. France Howard MD Work Phone: [facility] 05-09-2025 11:03-0400 Respiratory rate 16 /min Dr. France Howard MD Work Phone: [facility] 05-09-2025 11:03-0400 SaO2% (BldA) [Mass fraction] 98 % Dr. France Howard MD Work Phone: [facility] 05-09-2025 11:03-0400 Systolic blood pressure 126 mm[Hg] Dr. France Howard MD Work Phone: [facility] 10-20-2022 11:12-0500 Diastolic blood pressure 70 mm[Hg] No Primary Care Physician [facility] Work Phone: 10-20-2022 11:12-0500 Heart rate 83 /min No Primary Care Physician [facility] Work Phone: 10-20-2022 11:12-0500 Systolic blood pressure 138 mm[Hg] No Primary Care Physician [facility] Work Phone: 10-20-2022 09:16-0500 Body height 152.4 cm No Primary Care Physician [facility] Work Phone: 10-20-2022 09:16-0500 Body mass index (BMI) [Ratio] 20.5 kg/m2 No Primary Care Physician [facility] Work Phone: 10-20-2022 09:16-0500 Body temperature 98.9 [degF] No Primary Care Physician [facility] Work Phone: 10-20-2022 09:16-0500 Body weight 47.62 kg No Primary Care Physician [facility] Work Phone: 10-20-2022 09:16-0500 Respiratory rate 16 /min No Primary Care Physician [facility] Work Phone: 10-20-2022 09:16-0500 SaO2% (BldA) [Mass fraction] 99 % No Primary Care Physician [facility] Work Phone: 09-23-2022 16:13-0500 Body mass index (BMI) [Ratio] 21.3 kg/m2 No Primary Care Physician [facility] Work Phone: 09-23-2022 16:13-0500 Body weight 49.61 kg No Primary Care Physician [facility] Work Phone: 09-23-2022 16:13-0500 Diastolic blood pressure 77 mm[Hg] No Primary Care Physician [facility] Work Phone: 09-23-2022 16:13-0500 Systolic blood pressure 159 mm[Hg] No Primary Care Physician [facility] Work Phone: Encounters Encounter Date Encounter Type Care Provider Facility Start: 05-09-2025 End: 05-09-[address] France Howard MD Work Phone: -[facility] Start: 05-09-2025 End: 05-09-2025 Patient encounter procedure Dejon DUMONT -[facility] Work Phone: Start: 09-11-2024 End: 09-11-2024 ambulatory France Howard Facility:[facility] Start: 09-11-2024 End: 09-11-2024 ambulatory Viv Rod Facility:[facility] Start: 05-16-2024 Encounter for other preprocedural examination Viv Rod [facility] Start: 05-16-2024 End: 05-16-2024 ambulatory Viv Rod Facility:[facility] Start: 05-02-2024 ambulatory Viv Rod [facility] cility:[facility] Start: 05-02-2024 End: 05-02-2024 ambulatory Viv Rod Facility:[facility] Start: 04-11-2024 End: 04-11-2024 ambulatory [place] Anita Facility:[facility] Start: 04-11-2024 End: 04-11-2024 ambulatory [place] A[place] Facility:[facility] Start: 04-06-2024 End: 04-06-2024 ambulatory Viv Rod Facility:[facility] Start: 04-06-2024 End: 04-06-2024 ambulatory Viv Rod Facility:[facility] Start: 03-14-2024 End: 03-14-2024 ambulatory Viv Rod Facility:[facility] Start: 02-15-2024 End: 02-15-2024 ambulatory [place] Facility:[facility] Start: 02-15-2024 End: 02-15-2024 ambulatory France Anita Facility:[facility] Start: 10-27-2023 End: 10-27-2023 ambulatory [place] Anita Facility:[facility] Start: 09-03-2023 End: 09-03-2023 ambulatory [facility] Work Phone: Start: 09-03-2023 End: 09-03-2023 Patient encounter procedure [facility] Work Phone: Start: 10-20-2022 End: 10-20-2022 ambulatory No Primary Care Physician [facility] Work Phone: Start: 10-20-2022 End: 10-20-2022 Patient encounter procedure No Primary Care Physician [facility] Start: 10-20-2022 End: 10-20-2022 Patient encounter procedure No Primary Care Physician [facility] Start: 09-23-2022 End: 09-23-2022 Patient encounter procedure No Primary Care Physician [facility] Start: 06-01-2022 End: 06-01-2022 ambulatory [facility] Work Phone: Start: 06-01-2022 End: 06-01-2022 Patient encounter procedure [facility] Procedures Date Procedure Procedure Detail Performing Clinician Start: 09-03-2023 Screening mammography Start: 06-01-2022 Screening mammography Plan of Treatment Date Care Activity Detail Author Start: 05-09-2025 CBC W Auto Different ial panel - Blood [facility] Start: 05-09-2025 Comprehensive metabo lic 2000 panel - Serum or Plasma [facility] Start: 05-09-2025 Lipid 1996 panel - Serum or Plasma [facility] Start: 10-20-2022 Evaluation of diagno stic study results [facility] Work Phone: Alanine aminotransfe rase [Enzymatic activity/volume] in Serum or Plasma [facility] Albumin [Mass/volume ] in Serum or Plasma [facility] Alkaline phosphatase [Enzymatic activity/volume] in Serum or Plasma [facility] Anion gap in Serum or Plasma [facility] Bilirubin, total measurement [facility] BUN/Creatinine ratio [facility] Calcium [Mass/volume ] in Serum or Plasma [facility] Carbon dioxide, tota l [Moles/volume] in Central venous blood [facility] Cholesterol [Mass/vo lume] in Serum or Plasma [facility] Cholesterol in HDL [ Mass/volume] in Serum or Plasma [facility] Creatinine [Mass/vol ume] in Serum or Plasma [facility] Erythrocyte mean cor puscular volume determination [facility] Evaluation of diagno stic study results [facility] Work Phone: Glucose [Mass/volume ] in Serum or Plasma [facility] Hematocrit [Volume F raction] of Blood [facility] Hemoglobin [Mass/volume] in Blood [facility] Leukocytes [#/volume] in Blood [facility] Low density lipoprot ein cholesterol measurement [facility] Mean corpuscular hem oglobin concentration determination [facility] Mean corpuscular hem oglobin determination [facility] Measurement of renal function [facility] Neutrophil count [facility] Neutrophil percent d ifferential count [facility] Platelets [#/volume] in Blood [facility] Potassium measurement [facility] Red blood cell count [facility] Red cell distributio n width determination [facility] Serum chloride measurement [facility] Sodium measurement [facility] Total cholesterol:HD L ratio measurement [facility] Total protein measurement [facility] Triglycerides measurement [facility] Urea nitrogen [Mass/ volume] in Serum or Plasma [facility] VLDL cholesterol measurement [facility] Immunizations Immunization Date Immunization Notes Care Provider Fa luisty 05-20-2016 tetanus toxoid, redu fabricio diphtheria toxoid, and acellular pertussis vaccine, adsorbed No Primary Care Physician [facility] Payers Date Payer Category Payer Self-pay [id number] 2008 Unknown [id number] Unknown [id number] 2.16.8 [id number] Unknown [id number] 2.16.8 [id number] Unknown [id number] 2.16.8 [id number] Unknown [id number] 2.16.8 [id number] Unknown [id number] 2.16.8 [id number] Unknown [id number] 2.16.8 [id number] Unknown [id number] 2.16.8 [id number] Unknown [id number] 2.16.8 [id number] Unknown [id number] 2.16.8 [id number] Unknown [id number] 2.16.8 [id number] Unknown [id number] 2.16.8 [id number] Unknown [id number] 2.16.8 [id number] Unknown [id number] 2.16.8 [id number] Social History Date Type Detail Facility Start: 08-18-2018 End: 04-23-2023 Tobacco smoking status NHIS Unknown if ever smoked [facility] Start: 1980 Sex Assigned At Female [facility] Start: 05-04-2024 Tobacco smoking stat us DEIS Current some day smoker [facility] Clinical Note 05-02-2024 Note Date & Type Note Facility 05-02-2024 Note [facility] Medical Records Department [address] [place] [address] History Physical Exam 05/02/24 1159 MR#: [id number] Acct: [id number] Name: KATY GAMBLE Rep #: [id number] : 1980 43 From: Viv Rod DO PCP: Dr. France Howard MD Status:[facility] Location: [place] [address] History and Physical Date of Admission: 05/02/24 Intake Vital Signs 02/15/2412:57 04/06/2408:38 04/06/2408:40 Height 5 ft 5 ft 5 ft Weight: 111 lb 8 oz BMI 21.7 BP 154/89 H Intake Visit Reasons: EMB Investor Relations Manager Required: No Is patient in pain?: No Allergies No Known Allergies Allergy (Verified 04/06/24 08:37) Medications ???Medication ???Instructions ???Recorded ???Confirmed ???Type hydroxyzine HCl 10 mg tablet 10 mg PO TID PRN anxiety #10 tabs 03/15/23 04/06/24 Rx amlodipine 5 mg tablet 5 mg PO DAILY #30 tabs 10/25/23 04/06/24 Rx Post menopausal: No Patient : No : No PFSH PFSH Medical History Hypertension Surgical History H/O wisdom tooth extraction Family History Mother HypertensionFather Hypertension CVA (cerebral vascular accident)Grandfather CancerGrandmother Cancer of fallopian tubeGrandmother Breast cancerAunt Breast cancer Social History household members: spouse current occupational status: employed 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 Date Name GA/Weeks Outcome Route Bth Weight Infant Gen Labor Lgth Anesthesia Del Locatn Provider FOB Unknown Terrell Unknown Jc (girl) HPI EMB Details: KATY GAMBLE is a 43 year old who presents for EMB for tentatively scheduled ablation ROS Const ROS Unobtainable: All systems reviewed are unremarkable except as noted in H Resp Resp: Reports system reviewed and no additional complaints, except as documented; Denies cough GI GI: Reports as per HPI Psych Psych: Reports system reviewed and no additional complaints, except as documented Exam Const General: cooperative, healthy appearing, comfortable and no acute distress Resp Effort Inspection: normal respiratory effort General: bimanual renal exam normal bilaterally External Female Exam: normal appearance of the urethra Urethra: normal appearance of the urethra Speculum Exam - Vagina: normal appearance of the vagina Speculum Exam - Cervix: normal appearance of the cervix Bimanual Exam- Adnexa, other: normal adnexae and normal Pelvic Support: normal Skin General: no rashes or lesions noted Psych Appearance: grossly normal Speech and Movement: speech and movement normal Office Procedures Endometrial Biopsy Endometrial Biopsy Test: Yes declined Consent Signed: Yes Time out checklist: patient tenaculum used: Yes dilator used: No Details: Cervix prepped with betadine and pipelle inserted into uterus without complication. Specimen obtained and sent to lab for analysis. All instruments removed from vagina without complications. Excellent hemostasis noted. Coding Level of Care Code Off vis,est,level 3 Diagnoses Abnormal uterine bleeding N93.9 Hypertension I10 CPT Codes Endometrial Biopsy (12962) Assessment and Plan Assessment and Plan (1) Abnormal uterine bleeding: Status: Acute Plan: emb performed. will call with results and proceed with ablation (2) Hypertension: Status: Chronic Orders: Orders Endometrial Biopsy Today N93.9 - Abnormal uterine and vaginal bleeding, unspecified After discussing the patient's diagnosis and treatment plan options, patient wishes to proceed with surgical management. I have discussed with the patient the risks, benefits, and alternatives of the procedure which include but are not limited to risks of anesthesia, bleeding, infection, possible damage to bowel, bladder, or surrounding vasculature which could lead to additional surgery to evaluate any complications. Patient agrees to procedure and wishes to proceed. ACOG/uptodate references given for additional information regarding (more content not included)... [facility] Evaluation note Note Date & Type Note Facility Evaluation note No assessment information availa ble [facility] Work Phone: Evaluation note Note Date & Type Note Facility Evaluation note Diagnosis Onset Date Encounter for routine gyneco logical examination noneactive Immunization declined noneac tive Establishing care with new d octor, encounter for noneactive Moderate anxiety noneactive Essential hypertension nonea ctive [facility] Work Phone: Evaluation note Note Date & Type Note Facility Evaluation note Diagnosis Onset Date Resolution Hypertension chronic May 09, 025 10:43am [facility] Work Phone: Reason for referral (narrative) Note Date & Type Note Facility Reason for referral (narrative) No reason for referral information available [facility] Work Phone: Chief Complaint and Reason for Visit Chief Complaint SCREENING Chief Complaint 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, [facility] PT, CONSENT ONLY Reason for Visit Encounter for routin e gynecological examination Immunization declined Establishing care with new doctor, encounter for Moderate anxiety Essential hypertension Chief Complaint SCREENING Chief Complaint Admit Date 6 M FU May 09, 2025 10:4 3am Reason for Visit Admit Date Hypertension May 09, 2025 10:4 3am Family History Relationship Condition Age at Onset Recorded Date/T [place] mother Hypertension Unknown father Hypertension Unknown Cerebrovascular accident (CVA) Unknown grandfather Malignant neoplasm Unknown grandmother Malignant neoplasm of fallopian tube Unkn own grandmother Malignant neoplasm of breast Unknown aunt Malignant neoplasm of breast Unknown Summary Purpose Advance Directives No Advanced Directives Records Found Additional Source Comments Goals (unrecognized section and content) Goals may be documented in a n alternate sectionGoals may be documented in an alternate sectionGoals may be documented in an alternate sectionGoals may be documented in an alternate section Care Teams (unrecognized sec tion and content) Team Status: Active Member Role Status Dates No Primary Care Physician Family Provider Active Dr. [place] Howard MD Primary Care Provider Active Team Status: Inactive Member Role Status Dates Dr. [place] Howard MD Primary Care Provider Active Dr. Viv Rod DO Attending Provider, Refe rring Provider Active Team Status: Active Member Role/Relationship Status Dates No Primary Care Physician Family Provider Active Dr. France Howard MD Primary Care Provider Active Team Status: Inactive Member Role/Relationship Status Dates Dr. [place] Howard MD Primary Care Provider Active Start: May 09, 2025 End: May 09, 2025 Dr. France Howard MD Referring Provider Active Start: May 09, 2025 End: May 09, 2025 TIM Carlson Attending Provider Active St art: May 09, 2025 End: May 09, 2025 Team Status: Active Member Role/Relationship Status Dates Dr. [place] Howard MD Primary Care Provider Active Start: May 09, 2025 TIM Carlson Attending Provider Active St art: May 09, 2025 INFORMATION SOURCE (unrecogn ized section and content) DATE CREATED AUTHOR 09/12/2024 [facility] FOR RECORDS PERTAINING TO PATIENTS WHO ARE OR HAVE BEEN ENROLLED IN A CHEMICAL DEPENDENCY/SUBSTANCEABUSE PROGRAM, SOME INFORMATION MAY BE OMITTED. This clinical summary was aggregated from multiple sources. Caution should be exercised in using it in the provision of clinical care. This summary normalizes information from multiple sources, and as a consequence, information in this document may materially change the coding, format and clinical context of patient data. In addition, data may be omitted in some cases. CLINICAL DECISIONS SHOULD BE BASED ON THE PRIMARY CLINICAL RECORDS. [facility]. provides no warranty or guarantee of the accuracy or completeness of information in this document.
--- OUTSIDE RECORDS SUMMARY | 2025-05-09 20:25 | XMS RPT_ITS | CCD ---
Author Organization [facility] Care Team Providers Care Director Agricultural Services Name Role Phone Care Physician, No Primary Primary Care Provider Unavailable Care Physician, No Primary Referring Provider Un available Dr. Viv Rod Attending Provider [phone] Dr. France Howard Attending Provider [phone] [place], [place] Primary Care Unavailable Viv Rod Attending Unavailabl e Viv Rod Referring Unavailabl e Viv Rod Attending Unavailabl e Vande VelViv ghosh Referring Unavailabl e [place], [place] Primary Care Unavailable Viv Rod Attending Unavailabl e Anita, [place] Primary Care Unavailable [place], [place] Attending Unavailable Anita, [place] Referring Unavailable [place], [place] Primary Care Unavailable Viv Rod Attending Unavailabl e Vande VelViv ghosh Referring Unavailabl e Anita, [place] Primary Care Unavailable Anita, [place] Primary Care Unavailable Viv Rod Attending Unavailabl e [place], [place] Referring Unavailable Idaniae Viv Williamson Attending Unavailabl e Anita, [place] Referring Unavailable [place], [place] Primary Care Unavailable Anita, [place] Attending Unavailable [place], [place] Referring Unavailable [place], [place] Primary Care Unavailable Viv Rod Attending Unavailabl e Anita, [place] Referring Unavailable Anita, [place] Primary Care Unavailable Viv Rod Attending Unavailabl e Viv Rod Referring Unavailabl e Viv Rod Consulting Unavailabl e Anita, [place] Primary Care Unavailable Anita, [place] Attending Unavailable [place], [place] Referring Unavailable [place], [place] Primary Care Unavailable France Howard Primary Care Unavailable France Howard Attending Unavailable France Howard Referring Unavailable Viv Rod Referring UnavailViv Noland Attending Unavailuzair e France Howard Primary Care Unavailable Anita LEVINE, Dr. Hough Primary Care Provider Anita LEVINE, Dr. Hough Referring Provider Dejon [...] 23, 2022 1:00am November 10, 2022 10:22am Vit,Ncli51-Gnhc-Panmk (3 sources) Start: 01-16-2015 End: 08-18-2018 take 1 tablet by mouth once daily Vit,Iiyd48-Vqgp-Xxfkn Discontinued 1 TABLET PO DAILY January 15, 2015 11:00pm August 18, 2018 4:17pm Start: 01-16-2015 End: 08-18-2018 take 1 tablet by mouth once daily Vit,Jmpp58-Jjqo-Aunws Discontinued 1 TABLET PO DAILY January 16, 2015 12:00am August 18, 2018 5:17pm Vit,Wqku70-Ygdt-Nlbcf 1 TABLET tablet (1 source) Start: 01-16-2015 End: 08-18-2018 take 1 tablet by mouth once daily Vit,Eicj97-Ushm-Nfuwy 1 TABLET tablet Discontinued 1 {tbl} PO [...] Boyd n 09-11-2024 SCRN MAMM (CAD)W/PARAM LOCO [facility] Imaging Services [address] [place] [address] SCRN MAMM (CAD)W/PARAM LOCO MR#: [id number] Acct: [id number] Name: TYEKATY APPLE Rep #: [id number] : 1980 F 44 From: Romel fuentes MD PCP: Dr. France Howard MD Status: [facility] Study: SCRN MAMM (CAD)W/PARAM BILAT Date of Exam: 12/04 Exam# [id number] Ordering Dr: Barbara WilliamsonViv DO [id number] MAMMOGRAPHY - BILATERAL SCREENING REASON FOR EXAM: Female, 44 years old. Routine annual screening examination. PERTINENT HISTORY: Grandmother with breast cancer. Aunt with breast cancer. TECHNIQUE: Digital bilateral breast parma (3D mammographic acquisition) in the CC and [...] delay biopsy of a clinically suspicious abnormality. [id number] Electronically Signed: Romel Cat MD at 14:10 EST , CC: Dr. France Howard MD; Dr. Viv Rod DO Mechanical Designer: Signed Normal [facility] Internal Medicine Office Vis arely 08-31-2024 Internal Medicine Office Visit [facility] [address] [place] [address] [place] [address] OFFICE VISIT Date of Service: 09/11/24 MR#: [id number] Acct: [id number] Name: KATY GAMBLE Rep #: [id number] : 1980 Provider: Dr. France fung MD Age/Sex: 44/F Location[place] [facility] Status: Signed Intake Vital Signs 05/16/24 15:34 [...] 3 M FU Chief Complaint: 3m f/u Sampler Radioactive Waste Required: No Accompanied by: Self Is patient [...] increased hunger (more content not included)... Normal [facility] Hall Clerk Office Visit Reporton 05-16-2024 Hall Clerk Office Visit Report [facility] [address] [place] [address] OFFICE VISIT Date of Service: 05/16/24 MR#: [id number] Acct: [id number] Name: KATY GAMBLE Rep #: [id number] : 1980 Provider: Dr. Viv Perales DO Age/Sex: 43/F Location: [facility] [place] Status: Signed Intake Vital Signs 05/02/24 09:02 05/04/24 11:03 05/16/24 15:34 05/16/24 15:34 Height 5 ft 5 ft 5 ft 5 ft Weight: 110 lb 8 oz BMI 21.5 BP 146/93 H Intake Visit Reasons: 2 wk Post op ablation Sampler Radioactive Waste Required: No Is patient in pain?: No [...] Bth Weight Gen Labor [facility] FOB Unknown Terrell Unknown Jc (girl) [...] Cosigner Signature: Date (if applicable) CC: Normal [facility] Discharge Instructionon 04-11 Discharge Instruction [facility] Medical Records Department [address] [place] [address] Instructions for Home/Discharge Instructions 05/02/24 1222 MR#: [id number] Acct: [id number] Name: KATY GAMBLE Rep #: [id number] : 1980 43 From: Viv Rod DO PCP: Dr. France Howard MD Status:[place] [facility] [place]charge Instructions Diet Discharge Diet: No restrictions [...] Up With: Viv Rod DO When: Call [phone] to schedule appointment. Test Results: Test results from this visit will be discussed in further detail at your follow-up appointment, if applicable. Discharge Plan Admission Primary Reason for Your Visit: hysteroscopy, ablation Attending Provider: Viv Rod Primary Care Provider: France Howard Instructions Print Language: Zimbabwean Discharge Orders/Prescriptions Prescriptions: New ibuprofen 800 mg [...] TORRES CC: Dr. France Howard MD Signed [facility] MR/POSTOP.ANE 05-02-2024 MR/POSTOP.[facility] Medical Records Department [address] [place] [address] Anesthesia Postop Eval I 05/02/24 1238 MR#: [id number] Acct: [id number] Name: KATY GAMBLE Rep #: [id number] : 1980 43 From: Artur Singh PCP: Dr. France Howard MD Status:[place] [facility] [place] Race: C Location: [place] [address] Anesthesia: Postop Eval I Current Vital Signs [...] Date Artur Davenport Signature: Date CC: Signed [facility] MR/ESOAUMNH2uk 05-02-2024 MR/POSTOPAN2 [facility] Medical Records Department [address] [place] [address] Anesthesia Postop Eval II 05/02/24 1408 MR#: [id number] Acct: [id number] Name: KATY GAMBLE APPLE Rep #: [id number] : 1980 43 From: Darrell Driver MD PCP: Dr. France Howard MD Status:DEP [facility] [place] Race: C [place] [facility] [place] Anesthesia Postop Eval I Sum Postop Eval [...] MD Cosigner Signature: Date CC: Signed Normal [facility] Operative Reporton 4 Operative Report [facility] Medical Records Department [address] [place] [address] Operative Report 05/02/24 1220 MR#: [id number] Acct: [id number] Name: KATY GAMBLE Rep #: [id number] : 1980 43 From: Viv Rod DO PCP: Dr. France Howard MD Status:[place] [facility] [place] Location: [place] [address] Problems Associated Problem List Diagnoses (1) Abnormal uterine bleeding: Report of Operation Date of Procedure: 05/02/24 Pre-Operative Diagnosis: menorrhagia Post-Operative Diagnosis: menorrhagia Surgery/Procedure Performed:: hysteroscopy, berta ablation Description of Surgical Findings:: normal appearing endometrium and ostia. Surgeon: Viv Rod web marketing intern: None Type of Anesthesia: MAC and Topical [...] Multi Select Codes Urinary/Genital Urinary/Genital CPT Codes: 24075 Berta/Novasure 05/02/24 1222 Cosigner Signature (if applicable): CC: Dr. France Howard MD; Dr. Viv Rod DO Signed Normal [facility] ,Urineon 05-02-2024 Beta HCG ( test) Ql (U) Negative Normal [facility] Comment on above: Result Comment: Very dilute urine specimens, as indicated by a low specific gravity, may not contain hostess party sales representative levels of hCG. If is still suspected, a first morning urine specimen should be collected 48 hours later and tested. Performed By: #### L 400.1870, BTSPAT ####[facility] [address] [place], [address] Type AND Screen - PAT ONLYon 05-02-2024 Ab SCREEN GEL Negative Normal [facility] Comment on above: Order Comment: Surge ry Date: 05/02/24Reason for Laboratory Test [id number] D C ABLATION Performed By: #### L 400.7600, BTSPAT ####[facility] [address] [place], [address] CBC W/Diff, Automatedon 07-0 Absolute Lymph 1.40 X10 3/uL Normal 0.83-4.51 [facility] Comment on above: Performed By: #### L 100.0100, L500.4050 #### [facility] Laboratory [address] [place], [address] Absolute Neut 3.4 X10 3/uL Normal 2.0-7.7 [facility] Comment on above: Performed By: #### L 100.0100, L500.4050 #### [facility] [address] [place], [address] Basophils/100 WBC (Bld) 1.1 % High 0-1 [facility] Comment on above: Performed By: #### L 100.0100, L500.4050 #### [facility] [address] [place], [address] Eosinophils/100 WBC (Bld) 2.2 % Normal 0-5 [facility] Comment on above: Performed By: #### L 100.0100, L500.4050 #### [facility] [address] [place], [address] Erythrocyte distribution width (RBC) [Ratio] 11.8 % Normal 11.6-14.6 [facility] Comment on above: Performed By: #### L 100.0100, L500.4050 #### [facility] [address] [place], [address] Hematocrit (Bld) [Volume fraction] 42.3 % Normal 37-47 [facility] Comment on above: Performed By: #### L 100.0100, L500.4050 #### [facility] [address] [place], [address] Hemoglobin (Bld) [Mass/Vol] 14.5 g/dL Normal 12.0-15.0 [facility] Comment on above: Performed By: #### L 100.0100, L500.4050 #### [facility] [address] [place], [address] IG% 0.400 Normal 0.0-0.9 [facility] Comment on above: Result Comment: IG% - Immature Granulocytes (promyelocytes, myelocytes and metamyelocytes) > 1% indicates that a LEFT SHIFT is Present. Performed By: #### L 100.0100, L500.4050 #### [facility] [address] [place], [address] Lymphocytes/100 WBC (Bld) 25.8 % Normal 19-41 [facility] Comment on above: Performed By: #### L 100.0100, L500.4050 #### [facility] [address] [place], [address] MCH (RBC) [Entitic mass] 32.3 pg High 27.0-32.0 [facility] Comment on above: Performed By: #### L 100.0100, L500.4050 #### [facility] [address] [place], [address] MCHC (RBC) [Mass/Vol] 34.3 g/dL Normal 32-36 [facility] Comment on above: Performed By: #### L 100.0100, L500.4050 #### [facility] [address] [place], [address] MCV (RBC) [Entitic vol] 94.2 fL Normal 81-99 [facility] Comment on above: Performed By: #### L 100.0100, L500.4050 #### [facility] [address] [place], [address] Monocytes/100 WBC (Bld) 7.2 % Normal 0-10 [facility] Comment on above: Performed By: #### L 100.0100, L500.4050 #### [facility] [address] [place], [address] Neutrophils/100 WBC (Bld) 63.3 % Normal 47-70 [facility] Comment on above: Performed By: #### L 100.0100, L500.4050 #### [facility] [address] [place], [address] Nucleated RBC (Bld) [#/Vol] 0 10*3/uL Normal 0-5 [facility] Comment on above: Performed By: #### L 100.0100, L500.4050 #### [facility] [address] [place], [address] Platelet mean volume (Bld) [Entitic vol] 9.9 fL Normal 6.2-12.0 [facility] Comment on above: Performed By: #### L 100.0100, L500.4050 #### [facility] [address] [place], [address] Platelets (Bld) [#/Vol] 248 10*3/uL Normal 150-450 [facility] Comment on above: Performed By: #### L 100.0100, L500.4050 #### [facility] [address] [place], [address] RBC (Bld) [#/Vol] 4.49 10*6/uL Normal 4.2-5.4 [facility] Comment on above: Performed By: #### L 100.0100, L500.4050 #### [facility] [address] [place], [address] RDW SD 40.6 fl Normal 35.1-43.9 [facility] Comment on above: Performed By: #### L 100.0100, L500.4050 #### [facility] [address] [place], [address] WBC (Bld) [#/Vol] 5.4 10*3/uL Normal 4.4-11.0 [facility] Comment on above: Performed By: #### L 100.0100, L500.4050 #### [facility] [address] [place], [address] Comprehensive Metabolic Prof ilon 04-11-2024 Albumin [Mass/Vol] 4.3 g/dL Normal 3.2-5.0 [facility] Comment on above: Performed By: #### L 100.0100, L500.4050 #### [facility] [address] [place], [address] Albumin/Globulin [Mass ratio] 1.3 {ratio} Normal 0.9-2.4 [facility] Comment on above: Performed By: #### L 100.0100, L500.4050 #### [facility] [address] [place], [address] ALK P 70 U/L Normal 45-117 [facility] Comment on above: Performed By: #### L 100.0100, L500.4050 #### [facility] [address] [place], [address] ALT [Catalytic activity/Vol] 15 U/L Normal 13-56 [facility] Comment on above: Performed By: #### L 100.0100, L500.4050 #### [facility] [address] [place], [address] AST [Catalytic activity/Vol] 15 U/L Normal 15-37 [facility] Comment on above: Performed By: #### L 100.0100, L500.4050 #### [facility] [address] [place], [address] Bilirubin [Mass/Vol] 0.60 mg/dL Normal 0.20-1.00 [facility] Comment on above: Result Comment: For patients on eltrombopag therapy, use of Dimension Gratz TBIL is not recommended. Performed By: #### L 100.0100, L500.4050 #### [facility] [address] [place], [address] BUN/CRE 20.4 RATIO High 10-20 [facility] Comment on above: Performed By: #### L 100.0100, L500.4050 #### [facility] [address] [place], [address] CA,Total 9.7 mg/dL Normal 8.5-10.1 [facility] Comment on above: Performed By: #### L 100.0100, L500.4050 #### [facility] [address] [place], [address] Chloride [Moles/Vol] 105 mmol/L Normal 98-107 [facility] Comment on above: Performed By: #### L 100.0100, L500.4050 #### [facility] [address] [place], [address] CO2 [Moles/Vol] 25.0 mmol/L Normal 21.0-32.0 [facility] Comment on above: Performed By: #### L 100.0100, L500.4050 #### [facility] [address] [place], [address] Creatinine [Mass/Vol] 0.64 mg/dL Normal 0.55-1.02 [facility] Comment on above: Result Comment: The validity of the calculated GFR GFRAA in patients over 70 years has not been determined. Clinical correlation is essential. Performed By: #### L 100.0100, L500.4050 #### [facility] [address] [place], [address] EST GFR - AA 132 mL/min Normal >60 [facility] Comment on above: Result Comment: Afri can [place] GFR Calc Performed By: #### L 100.0100, L500.4050 #### [facility] [address] [place], [address] GAP 7 Normal 5-15 [facility] Comment on above: Performed By: #### L 100.0100, L500.4050 #### [facility] [address] [place], [address] GFR/1.73 sq M.predicted among non-blacks MDRD (S/P/Bld) [Vol rate/Area] 109 mL/min/{1.73_m2} Normal >60 [facility] Comment on above: Result Comment: Non- GFR Calc Performed By: #### L 100.0100, L500.4050 #### [facility] [address] [place], [address] Globulin (S) [Mass/Vol] 3.3 g/dL Normal 2.2-4.2 [facility] Comment on above: Performed By: #### L 100.0100, L500.4050 #### [facility] [address] [place], [address] Glucose [Mass/Vol] 101 mg/dL Normal 74-106 [facility] Comment on above: Result Comment: Fast ing Glucose result from 100 to 125 mg/dL suggests IMPAIRED HOMEOSTASIS per A.D.A. criteria. Performed By: #### L 100.0100, L500.4050 #### [facility] [address] [place], [address] Potassium [Moles/Vol] 3.6 mmol/L Normal 3.5-5.1 [facility] Comment on above: Performed By: #### L 100.0100, L500.4050 #### [facility] [address] [place], [address] Sodium [Moles/Vol] 137 mmol/L Normal 136-145 [facility] Comment on above: Performed By: #### L 100.0100, L500.4050 #### [facility] [address] [place], [address] T PROT 7.6 g/dL Normal 6.4-8.2 [facility] Comment on above: Performed By: #### L 100.0100, L500.4050 #### [facility] [address] [place], [address] Urea nitrogen [Mass/Vol] 13 mg/dL Normal 7-18 [facility] Comment on above: Performed By: #### L 100.0100, L500.4050 #### [facility] [address] [place], [address] Internal Medicine Office Vis arely 04-10-2024 Internal Medicine Office Visit [facility] [address] [place] [address] [place] [address] OFFICE VISIT Date of Service: 04/11/24 MR#: [id number] Acct: [id number] Name: KATY GAMBLE Rep #: [id number] : 1980 Provider: Dr. France fung MD Age/Sex: 43/F [place] [facility] Status: Signed Intake Vital Signs 10/27/23 09:29 04/06/24 08:40 04/11/24 10:04 Height 5 ft 5 ft 5 ft Weight: 111 lb BMI 21.7 BP 126/80 H Blood Pressure Location Lt brachial Position Sitting Respiration 18 Pulse 101 H Pulse Source Monitor Temp 99 F Temp Source Temporal Pulse Oximetry (%) 99 Oxygen Delivery Method room air Intake Visit Reasons: 6 m fu Sampler Radioactive Waste Required: No Is patient in pain?: No [...] she had a biopsy. Dr. Dickerson follows. [facility] Medical History Hypertension Surgical History (Updated 04/11/24 [...] home: Yes additional social history: - He [facility] HPI Details: KATY GAMBLE, is a [...] harming your (more content not included)... Normal [facility] Genital Culture Comprehensiv sonya 04-09-2024 VAC Reason for Exam: vaginal discharge Normal vaginal amy isolated. No yeast, Neisseria or beta-hemolytic Streptococcus isolated. G. vaginalis (Presumptive) Amount Growth 3+ Normal [facility] Comment on above: Performed By: #### M 100.1999, M100.3200 ####[facility] [id number] [place], [address] Gram Stainon 04-06-2024 GS Reason for Exam: vaginal discharge Gram Stain 3+ Gram variable paola No Gram negative diplococci 1+ White Blood Cells Score = 7 Interpretation: 0-3 Normal, 4-6 Intermediate, 7-10 Positive BV Normal [facility] Comment on above: Performed By: #### M 100.1999, M100.3200 ####[facility] [id number] [place], [address] Hall Clerk Office Visit Reporton 04-06-2024 Hall Clerk Office Visit Report [facility] [address] [place] [address] OFFICE VISIT Date of Service: 04/06/24 MR#: [id number] Acct: [id number] Name: KATY GAMBLE Rep #: [id number] : 1980 Provider: Dr. Viv Perales DO Age/Sex: 43/F Location: [facility] [place] Status: Signed Intake Vital Signs 02/15/24 12:57 04/06/24 08:38 04/06/24 08:40 Height 5 ft 5 ft 5 ft Weight: 111 lb 8 oz BMI 21.7 BP 154/89 H Intake Visit Reasons: EMB Sampler Radioactive Waste Required: No Is patient in pain?: No Allergies No Known Allergies Allergy (Verified 04/06/24 08:37) Medications ???Medication ???Instructions ???Recorded ???Confirmed ???Type hydroxyzine HCl 10 mg tablet 10 mg PO TID PRN anxiety #10 tabs 03/15/23 04/06/24 Rx amlodipine 5 mg tablet 5 mg PO DAILY #30 tabs 10/25/23 04/06/24 Rx Post menopausal: No Patient : No : No PFSH [facility] Medical History Hypertension Surgical History H/O wisdom [...] N93.9 Hypertension I10 CPT Codes Endometrial Biopsy (49484) Assessment and Plan Assessment and Plan (1) Abnormal uterine bleeding: Status: Acute Plan: emb performed. will call with results and proceed with ablation if appropriate. (2) Hypertension: Status: Chronic Orders: Orders Endometrial Biopsy Today N93.9 - Abnormal uterine and vaginal bleeding, unspecified 04/06/24901 Date Viv Rod DO [facility] Signature: Date (if applicable) CC: Normal [facility] Surgery Specimen Level Francisca 04-06-2024 Surgery Specimen Level IV -------- Patient Age/Sex Location Account Attending Physician -------- KATY GAMBLE 43/F [facility] [id number] Dr. Viv Rod, Petros -------- Specimen: [id number] Received: 04/06/24-1157 Status: FELIPE Crisostomo Num: [id number] Spec Type: ENDOM BX/C [place] Dr: Dr. Viv Rod, [facility] OPERATION: Endometrial biopsy PRE-OP DIAGNOSIS: Abnormal uterine bleeding TISSUE SUBMITTED: Endometrial lining -------- MICROSCOPIC DIAGNOSIS Endometrial biopsy: Proliferative endometrium. Fragments of benign ectocervical and endocervical mucosa. [facility] 04/07/2024 MICROSCOPIC DESCRIPTION Slides are reviewed. GROSS DESCRIPTION Received is one container labeled with the patient's name and not further designated. The specimen consists of multiple irregular fragments of pink-red soft tissue that in aggregate measure 2.0 x 1.0 x 0.2 cm. The specimen is totally submitted in one cassette. [facility] 04/06/2024 TC:4 CPT:03007 -------- Patient Age/Sex Location Account Attending Physician -------- KATY GAMBLE 43/F [facility] [id number] Dr. Viv Rod, Petros -------- Signed (signature on file) Dr. Colton Richey MD 04/07/24 1122 -------- Normal [facility] Comment on above: Performed By: #### P SUIV ####[facility] [id number] [facility] [place], [place], [address] Pelvic w/ Transvaginalon Pelvic w/ Transvaginal [facility] Imaging Services [address] [place], [place] [address] Pelvic w/ Transvaginal MR#: [id number] Acct: [id number] Name: KATY GAMBLE Rep #: [id number] : 1980 F 43 From: Esvin Morrell PCP: Dr. France Howard MD Status: [facility] Study: Pelvic w/ Transvaginal Date of Exam: 03/14/24 Exam# [id number] Ordering Dr: Viv Rod DO [id number] INDICATION: abnormal uterine bleeding EXAMINATION: Ultrasound US [...] France Howard MD; Dr. Viv Rod DO Mechanical Designer: Signed Normal [facility] PAP I-G w/rfx hrHPV-Aptimaon 02-23-2024 ADEQ Comment Normal . [facility] Comment on above: Order Comment: Speci men Comment: [id number] Comment: Source.............CervixSpecimen Comment: No. of containers..01 ThinPrep Vial Result Comment: Sati sfactory for evaluation. Endocervical and/or squamous metaplastic cells (endocervical component) are present. Performed By: #### L 7400.0353 ####[facility] [address] [place], [place], [id number] COMM . Normal . [facility] Comment on above: Order Comment: Speci men Comment: [id number] Comment: Source.............CervixSpecimen Comment: No. of containers..01 ThinPrep Vial Performed By: #### L 7400.0353 ####[facility] [address] [place], [place], [id number] COMMENT Comment Normal . [facility] Comment on above: Order Comment: Speci men Comment: [id number] Comment: Source.............CervixSpecimen Comment: No. of containers..01 ThinPrep Vial Result Comment: This liquid based ThinPrep(R) pap test was screened with the use of an image guided system. Performed By: #### L 7400.0353 ####[facility] [address] [place], [place], [id number] DIAG Comment Abnormal . [facility] Comment on above: Order Comment: Speci men Comment: [id number] Comment: Source.............CervixSpecimen Comment: No. of containers..01 ThinPrep Vial Result Comment: EPIT HELIAL CELL ABNORMALITY. ATYPICAL SQUAMOUS CELLS OF UNDETERMINED SIGNIFICANCE (ASC-US). Performed By: #### L 7400.0353 ####[facility] [address] [place], [place], [id number] HPV APTIMA, HR Negative Normal Negative [facility] Comment on above: Order Comment: Speci men Comment: [id number] Comment: Source.............CervixSpecimen Comment: No. of containers..01 ThinPrep Vial Result Comment: This nucleic acid amplification test detects fourteen high- risk HPV types (16,18,31,33,35,39,45,51,52,56,58,59,66,68) without differentiation. Performed at: - [facility] [id number] Machine Room Operator: Seble Mueller MD, Phone: [phone] Performed at: = - [facility] [id number] Machine Room Operator: Seble Mueller MD, Phone: [phone] Performed By: #### L 7400.0353 ####[facility] [address] [place], [place], [id number] HPV RFLX Comment Normal . [facility] Comment on above: Order Comment: Speci men Comment: [id number] Comment: Source.............CervixSpecimen Comment: No. of containers..01 ThinPrep Vial Result Comment: See below for HPV testing results. Performed By: #### L 7400.0353 ####[facility] [address] [place], [place], [address] PAPSMR Comment Normal . [facility] Comment on above: Order Comment: Speci men Comment: [id number] Comment: Source.............CervixSpecimen Comment: No. of containers..01 ThinPrep Vial Result Comment: The Pap smear is a screening test designed to aid in the detection of premalignant and malignant conditions of the uterine cervix. It is not a diagnostic procedure and should not be used as the sole means of detecting cervical cancer. Both false-positive and false-negative reports do occur. Performed By: #### L 7400.0353 ####[facility] [address] [place], [place], [address] Path.prov.IDC-9 Comment Normal . [facility] Comment on above: Order Comment: Speci men Comment: [id number] Comment: Source.............CervixSpecimen Comment: No. of containers..01 ThinPrep Vial Result Comment: [id number] Performed By: #### L 7400.0353 ####[facility] [address] [place], [place], [address] PERFORM Comment Normal . [facility] Comment on above: Order Comment: Speci men Comment: [id number] Comment: Source.............CervixSpecimen Comment: No. of containers..01 ThinPrep Vial Result Comment: Glenis Valentine, Aoc Director Intelligence Officer (ASCP) Performed By: #### L 7400.0353 ####[facility] [address] [place], [place], [address] RECOMM Comment Abnormal . [facility] Comment on above: Order Comment: Speci men Comment: [id number] Comment: Source.............CervixSpecimen Comment: No. of containers..01 ThinPrep Vial Result Comment: Sugg est follow up as clinically appropriate. Performed By: #### L 7400.0353 ####[facility] [address] [place], [place], [id number] SIGN Comment Normal . [facility] Comment on above: Order Comment: Speci men Comment: [id number] Comment: Source.............CervixSpecimen Comment: No. of containers..01 ThinPrep Vial Result Comment: Simin Mueller MD, Pathologist Performed By: #### L 7400.0353 ####[facility] [address] [place], [address] Hall Clerk Office Visit Reporton 02-15-2024 Hall Clerk Office Visit Report [facility] [address] [place] [address] OFFICE VISIT Date of Service: 02/15/24 MR#: [id number] Acct: [id number] Name: KATY GAMBLE Rep #: [id number] : 1980 Provider: Dr. 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 Normal [facility] Internal Medicine Office Vis arely 10-26-2023 Internal Medicine Office Visit [facility] [address] [place] [address] [place] [address] OFFICE VISIT Date of Service: 10/27/23 MR#: [id number] Acct: [id number] Name: KATY GAMBLE Rep #: [id number] : 1980 Provider: Dr. France fung MD Age/Sex: 43/F Location[place] [facility] Status: Signed Intake Vital Signs 04/26/23 09:32 10/27/23 09:29 Height 5 ft 5 ft Weight: 110 lb BMI 21.4 BP 104/68 Blood Pressure Location Lt brachial Position Sitting Respiration 14 Pulse 81 Pulse Source Monitor Temp 97.8 F Temp Source Temporal Pulse Oximetry (%) 98 Oxygen Delivery Method room air Intake Visit Reasons: 6 m fu Chief Complaint: DISCUSS BP MED Sampler Radioactive Waste Required: No Is patient in pain?: No [...] History (Updated 10/27/23 @ 09:[address] Farnce Howard MD) household members: spouse current occupational [...] skin, redne (more content not included)... Normal [facility] Absolute lymphocyte counton 10-20-2022 Lymphocytes Auto (Unsp spec) [#/Vol] 1.50 10*3/uL 0.83-4.51 [facility] Work Phone: Basophil percentageon 2022 Basophils/100 WBC (Bld) 1.3 % 0-1 [facility] Work Phone: Bilirubin [Mass/Vol] 0.50 mg/dL 0.20-1.00 [facility] Work Phone: Comment on above: For patients on eltr ombopag therapy, use of Dimension Gratz TBIL is not recommended. Chloride [Moles/Vol] 109 mmol/L 98-107 [facility] Work Phone: Cholesterol [Mass/Vol] 189 mg/dL <200 [facility] Work Phone: Comment on above: <200 mg/dL Desirable 200-240 mg/dL Borderline >240 mg/dL High Risk Eosinophils/100 WBC (Bld) 4.2 % 0-5 [facility] Work Phone: Glucose [Mass/Vol] 102 mg/dL 74-106 [facility] Work Phone: Comment on above: Fasting Glucose resu lt from 100 to 125 mg/dL suggests IMPAIRED HOMEOSTASIS per A.D.A. criteria. Neutrophils (Bld) [#/Vol] 2.5 10*3/uL 2.0-7.7 [facility] Work Phone: Neutrophils/100 WBC (Bld) 55.1 % 47-70 [facility] Work Phone: Potassium [Moles/Vol] 3.8 mmol/L 3.5-5.1 [facility] Work Phone: Protein [Mass/Vol] 7.8 g/dL 6.4-8.2 [facility] Work Phone: Sodium [Moles/Vol] 139 mmol/L 136-145 [facility] Work Phone: Triglyceride [Mass/Vol] 84 mg/dL <199 [facility] Work Phone: Comment on above: The drugs N-Acetylcy steine and Metamizole may falsely depress this assay.Serum Triglycerides Reference Interval Normal <150 mg/dL Borderline high 150 - 199 mg/dL High 200 - 499 mg/dL Very High > or = 500 mg/dL WBC (Bld) [#/Vol] 4.5 10*3/uL 4.4-11.0 [facility] Work Phone: Blood erythrocytes count (nu mber/volume)on 10-20-2022 RBC (Bld) [#/Vol] 4.53 10*6/uL 4.2-5.4 [facility] Work Phone: Blood hemoglobin measurement (mass/volume)on 10-20-2022 Hemoglobin (Bld) [Mass/Vol] 14.6 g/dL 12.0-15.0 [facility] Work Phone: Blood lymphocytes/100 leukoc yteson 10-20-2022 Lymphocytes/100 WBC (Bld) 33.2 % 19-41 [facility] Work Phone: Blood monocytes/100 leukocyt eson 10-20-2022 Monocytes/100 WBC (Bld) 6.0 % 0-10 [facility] Work Phone: Blood platelet mean volumeon 10-20-2022 Platelet mean volume (Bld) [Entitic vol] 9.8 fL 6.2-12.0 [facility] Work Phone: Determination of erythrocyte mean corpuscular volume (MCV)on 10-20-2022 MCV (RBC) [Entitic vol] 92.3 fL 81-99 [facility] Work Phone: Hematocrit Auto (Bld) [Volum e fraction]on 10-20-2022 Hematocrit (Bld) [Volume fraction] 41.8 % 37-47 [facility] Work Phone: Laboratory - Chemistry and C hemistry - challengeon 10-20-2022 ALP [Catalytic activity/Vol] 53 U/L 45-117 [facility] Work Phone: ALT [Catalytic activity/Vol] 20 U/L 13-56 [facility] Work Phone: CO2 [Moles/Vol] 25.0 mmol/L 21.0-32.0 [facility] Work Phone: Globulin (S) [Mass/Vol] 3.5 g/dL 2.2-4.2 [facility] Work Phone: Urea nitrogen/Creatinine [Mass ratio] 18.8 mg/mg 10-20 [facility] Work Phone: Laboratory - Hematology and Cell countson 10-20-2022 Erythrocyte distribution width (RBC) [Entitic vol] 39.3 fL 35.1-43.9 [facility] Work Phone: Erythrocyte distribution width (RBC) [Ratio] 11.6 % 11.6-14.6 [facility] Work Phone: Immature granulocytes/100 WBC (Bld) 0.200 % 0.0-0.9 [facility] Work Phone: Comment on above: IG% - Immature Granu locytes (promyelocytes, myelocytes and metamyelocytes) > 1% indicates that a LEFT SHIFT is Present. MCH (RBC) [Entitic mass] 32.2 pg 27.0-32.0 [facility] Work Phone: Nucleated RBC/100 WBC (Bld) [Ratio] 0 % 0-5 [facility] Work Phone: MCHC Auto (RBC) [Mass/Vol]on 10-20-2022 MCHC (RBC) [Mass/Vol] 34.9 g/dL 32-36 [facility] Work Phone: No Panel Informationon 10-20 Estimated GFR (MDRD) Amer 132 mL/min >60 [facility] Work Phone: Comment on above: GFR Calc Estimated GFR (MDRD) Non-Af Amer 109 mL/min >60 [facility] Work Phone: Comment on above: Non- GFR Calc Thyroid Stimulating Hormone (TSH) 1.35 uIU/mL 0.358-3.74 [facility] Work Phone: Platelets bldon 10-20-2022 Platelets (Bld) [#/Vol] 238 10*3/uL 150-450 [facility] Work Phone: Serum or plasma albumin mehul urement (mass/volume)on 10-20-2022 Albumin [Mass/Vol] 4.3 g/dL 3.2-5.0 [facility] Work Phone: Serum or plasma albumin/glob ulin mass ratioon 10-20-2022 Albumin/Globulin [Mass ratio] 1.2 {ratio} 0.9-2.4 [facility] Work Phone: Serum or plasma calcium mehul urement (mass/volume)on 10-20-2022 Calcium [Mass/Vol] 9.3 mg/dL 8.5-10.1 [facility] Work Phone: Serum or plasma cholesterol in HDL measurement (mass/volume)on 10-20-2022 Cholesterol in HDL [Mass/Vol] 76 mg/dL >40 [facility] Work Phone: Comment on above: The drugs N-Acetylcy steine and Metamizole may falsely depress this assay. Reference Range HDL <40 mg/dL Low HDL Cholesterol HDL >or= 60 mg/dL High HDL Cholesterol Serum or plasma cholesterol in VLDL measurement (mass/volume)on 10-20-2022 Cholesterol in VLDL [Mass/Vol] 17 mg/dL 5-40 [facility] Work Phone: Serum or plasma creatinine m easurement (mass/volume)on 10-20-2022 Creatinine [Mass/Vol] 0.64 mg/dL 0.55-1.02 [facility] Work Phone: Comment on above: The validity of the calculated GFR & GFRAA in patients over 70 years has not been determined. Clinical correlation is essential. Serum or plasma low density lipoprotein (LDL) cholesterol measurement (mass/volume)on 10-20-2022 Cholesterol in LDL [Mass/Vol] 96 mg/dL 0-130 [facility] Work Phone: Serum or plasma urea nitroge n measurement (mass/volume)on 10-20-2022 Urea nitrogen [Mass/Vol] 12 mg/dL 7-18 [facility] Work Phone: Thin prep Papanicolaou smear with manual screeningon 10-20-2022 Thin prep Papanicolaou smear with manual screening 11 U/L 15-37 [facility] Work Phone: Thin prep Papanicolaou smear with manual screening 5 5-15 [facility] Work Phone: Vital Signs Date Time Vital Sign Value Performing Clinician Darius platt 05-09-2025 11:03-0400 Body height 152.[address] France Howard MD Work Phone: [facility] 05-09-2025 11:03-0400 Body mass index (BMI) [Ratio] 21.1 kg/m2 Dr. France Howard MD Work Phone: [facility] 05-09-2025 11:03-0400 Body temperature 97.4 [degF] Dr. France Howard MD Work Phone: [facility] 05-09-2025 11:03-0400 Body weight 48.[address] France Howard MD Work Phone: [facility] 05-09-2025 11:03-0400 Diastolic blood pressure 84 mm[Hg] Dr. France Howard MD Work Phone: [facility] 05-09-2025 11:03-0400 Heart rate 74 /min Dr. France Howard MD Work Phone: [facility] 05-09-2025 11:03-0400 Respiratory rate 16 /min Dr. France Howard MD Work Phone: [facility] 05-09-2025 11:03-0400 SaO2% (BldA) [Mass fraction] 98 % Dr. France Howard MD Work Phone: [facility] 05-09-2025 11:03-0400 Systolic blood pressure 126 mm[Hg] Dr. France Howard MD Work Phone: [facility] 10-20-2022 11:12-0500 Diastolic blood pressure 70 mm[Hg] No Primary Care Physician [facility] Work Phone: 10-20-2022 11:12-0500 Heart rate 83 /min No Primary Care Physician [facility] Work Phone: 10-20-2022 11:12-0500 Systolic blood pressure 138 mm[Hg] No Primary Care Physician [facility] Work Phone: 10-20-2022 09:16-0500 Body height 152.4 cm No Primary Care Physician [facility] Work Phone: 10-20-2022 09:16-0500 Body mass index (BMI) [Ratio] 20.5 kg/m2 No Primary Care Physician [facility] Work Phone: 10-20-2022 09:16-0500 Body temperature 98.9 [degF] No Primary Care Physician [facility] Work Phone: 10-20-2022 09:16-0500 Body weight 47.62 kg No Primary Care Physician [facility] Work Phone: 10-20-2022 09:16-0500 Respiratory rate 16 /min No Primary Care Physician [facility] Work Phone: 10-20-2022 09:16-0500 SaO2% (BldA) [Mass fraction] 99 % No Primary Care Physician [facility] Work Phone: 09-23-2022 16:13-0500 Body mass index (BMI) [Ratio] 21.3 kg/m2 No Primary Care Physician [facility] Work Phone: 09-23-2022 16:13-0500 Body weight 49.61 kg No Primary Care Physician [facility] Work Phone: 09-23-2022 16:13-0500 Diastolic blood pressure 77 mm[Hg] No Primary Care Physician [facility] Work Phone: 09-23-2022 16:13-0500 Systolic blood pressure 159 mm[Hg] No Primary Care Physician [facility] Work Phone: Encounters Encounter Date Encounter Type Care Provider Facility Start: 05-09-2025 End: 05-09-[address] France Howard MD Work Phone: -[facility] Start: 05-09-2025 End: 05-09-2025 Patient encounter procedure Dejon DUMONT -[facility] Work Phone: Start: 09-11-2024 End: 09-11-2024 ambulatory France Howard [place] Start: 09-11-2024 End: 09-11-2024 ambulatory Viv Rod Facility:[facility] Start: 05-16-2024 Encounter for other preprocedural examination Viv Rod [facility] Start: 05-16-2024 End: 05-16-2024 ambulatory Viv Rod Facility:[facility] Start: 05-02-2024 ambulatory Viv Rod Fa cility:[facility] Start: 05-02-2024 End: 05-02-2024 ambulatory Viv Rod Facility:[facility] Start: 04-11-2024 End: 04-11-2024 ambulatory France Anita Facility:[facility] Start: 04-11-2024 End: 04-11-2024 ambulatory France Anita Facility:[facility] Start: 04-06-2024 End: 04-06-2024 ambulatory Viv Rod Facility:[facility] Start: 04-06-2024 End: 04-06-2024 ambulatory Viv Rod Facility:[facility] Start: 03-14-2024 End: 03-14-2024 ambulatory Viv Rod Facility:[facility] Start: 02-15-2024 End: 02-15-2024 ambulatory France Broad Top Facility:[facility] Start: 02-15-2024 End: 02-15-2024 ambulatory France Anita Facility:[facility] Start: 10-27-2023 End: 10-27-2023 ambulatory France Anita Facility:[facility] Start: 09-03-2023 End: 09-03-2023 ambulatory [facility] Work Phone: Start: 09-03-2023 End: 09-03-2023 Patient encounter procedure [facility] Work Phone: Start: 10-20-2022 End: 10-20-2022 ambulatory No Primary Care Physician [facility] Work Phone: Start: 10-20-2022 End: 10-20-2022 Patient encounter procedure No Primary Care Physician [facility] Start: 10-20-2022 End: 10-20-2022 Patient encounter procedure No Primary Care Physician [facility] Start: 09-23-2022 End: 09-23-2022 Patient encounter procedure No Primary Care Physician [facility] Start: 06-01-2022 End: 06-01-2022 ambulatory [facility] Work Phone: Start: 06-01-2022 End: 06-01-2022 Patient encounter procedure [facility] Procedures Date Procedure Procedure Detail Performing Clinician Start: 09-03-2023 Screening mammography Start: 06-01-2022 Screening mammography Plan of Treatment Date Care Activity Detail Author Start: 05-09-2025 CBC W Auto Different ial panel - Blood [facility] Start: 05-09-2025 Comprehensive metabo lic 2000 panel - Serum or Plasma [facility] Start: 05-09-2025 Lipid 1996 panel - Serum or Plasma [facility] Start: 10-20-2022 Evaluation of diagno stic study results [facility] Work Phone: Alanine aminotransfe rase [Enzymatic activity/volume] in Serum or Plasma [facility] Albumin [Mass/volume ] in Serum or Plasma [facility] Alkaline phosphatase [Enzymatic activity/volume] in Serum or Plasma [facility] Anion gap in Serum or Plasma [facility] Bilirubin, total measurement [facility] BUN/Creatinine ratio [facility] Calcium [Mass/volume ] in Serum or Plasma [facility] Carbon dioxide, tota l [Moles/volume] in Central venous blood [facility] Cholesterol [Mass/vo lume] in Serum or Plasma [facility] Cholesterol in HDL [ Mass/volume] in Serum or Plasma [facility] Creatinine [Mass/vol ume] in Serum or Plasma [facility] Erythrocyte mean cor puscular volume determination [facility] Evaluation of diagno stic study results [facility] Work Phone: Glucose [Mass/volume ] in Serum or Plasma [facility] Hematocrit [Volume F raction] of Blood [facility] Hemoglobin [Mass/volume] in Blood [facility] Leukocytes [#/volume] in Blood [facility] Low density lipoprot ein cholesterol measurement [facility] Mean corpuscular hem oglobin concentration determination [facility] Mean corpuscular hem oglobin determination [facility] Measurement of renal function [facility] Neutrophil count [facility] Neutrophil percent d ifferential count [facility] Platelets [#/volume] in Blood [facility] Potassium measurement [facility] Red blood cell count [facility] Red cell distributio n width determination [facility] Serum chloride measurement [facility] Sodium measurement [facility] Total cholesterol:HD L ratio measurement [facility] Total protein measurement [facility] Triglycerides measurement [facility] Urea nitrogen [Mass/ volume] in Serum or Plasma [facility] VLDL cholesterol measurement [facility] Immunizations Immunization Date Immunization Notes Care Provider Fa luisty 05-20-2016 tetanus toxoid, redu fabricio diphtheria toxoid, and acellular pertussis vaccine, adsorbed No Primary Care Physician [facility] Payers Date Payer Category Payer Self-pay [id number] 2008 Unknown [id number] Unknown [id number] 2.16.8 [id number] Unknown [id number] 2.16.8 [id number] Unknown [id number] 2.16.8 [id number] Unknown [id number] 2.16.8 [id number] Unknown [id number] 2.16.8 [id number] Unknown [id number] 2.16.8 [id number] Unknown [id number] 2.16.8 [id number] Unknown [id number] 2.16.8 [id number] Unknown [id number] 2.16.8 [id number] Unknown [id number] 2.16.8 [id number] Unknown [id number] 2.16.8 [id number] Unknown [id number] 2.16.8 [id number] Unknown [id number] 2.16.8 [id number] Social History Date Type Detail Facility Start: 08-18-2018 End: 04-23-2023 Tobacco smoking status NHIS Unknown if ever smoked [facility] Start: 1980 Sex Assigned At Female W [facility] Start: 05-04-2024 Tobacco smoking stat us WAIS Current some day smoker [facility] Clinical Note 05-02-2024 Note Date & Type Note Facility 05-02-2024 Note [facility] Medical Records Department [address] [place] [address] History Physical Exam 05/02/24 1159 MR#: [id number] Acct: [id number] Name: KATY GAMBLE Rep #: [id number] : 1980 43 From: Viv Rod DO PCP: Dr. 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 [facility] Evaluation note Note Date & Type Note Facility Evaluation note No assessment information availa ble [facility] Work Phone: Evaluation note Note Date & Type Note Facility Evaluation note Diagnosis Onset Date Encounter for routine gyneco logical examination noneactive Immunization declined noneac tive Establishing care with [facility], encounter for noneactive Moderate anxiety noneactive Essential hypertension nonea ctive [facility] Work Phone: Evaluation note Note Date & Type Note Facility Evaluation note Diagnosis Onset Date Resolution Hypertension chronic May 09, 025 10:43am [facility] Work Phone: Reason for referral (narrative) Note Date & Type Note Facility Reason for referral (narrative) No reason for referral information available [facility] Work Phone: Chief Complaint and Reason for Visit Chief Complaint SCREENING Chief Complaint 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 [facility] [employer] [facility]. provides no warranty or guarantee of the accuracy or completeness of information in this document.
== END | disposition home or self-care (01) ==
LOC: BIMLAB 11:40
PROVIDERS: PCP Internal Medicine; Visit Provider Physician Assistant
DX: I10 Essential (primary) hypertension (principal)
CPT/HCPCS: 36415; 80053; 80061; 85025